=== PATIENT | female | born 1955 | race Caucasian/White ===

== ENCOUNTER 2020-05-21 14:55 | Outpatient (REF) | payer SELFPAY | END 2020-05-21 15:15 | LOC: NCHCN 14:55 | PROVIDERS: PCP Internal Medicine; Visit Provider Nurse Practitioner Family | DX: R35.0 Frequency of micturition (principal) | CPT/HCPCS: 87086 ==

== ENCOUNTER 2020-07-16 20:05 | Outpatient (REF) | payer SELFPAY ==
[2020-07-16 22:15] LABS: Abs Immature Grans 0.01 10^3/uL (0.0-0.06); Absolute Basophil Count 0.06 10^3/uL (0.0-0.2); Absolute Eosinophil Count 0.18 10^3/uL (0.0-0.7); Absolute Lymphocyte Count 1.28 10^3/uL (1.2-3.4); Absolute Monocyte Count 0.59 10^3/uL (0.1-0.8); Absolute Neutrophil Count 4.74 10^3/uL (1.2-6.7); Basophils % 0.9; Eosinophils % 2.6; HCT 38.2 % (36.0-46.0); HGB 12.6 g/dL (11.2-15.7); Immature Grans % 0.1; Lymphocytes % 18.7; MCH 29.2 pg (27.0-33.0); MCV 88.4 fL (80-95); MPV 11.2 fL (8.0-11.0); Monocytes % 8.6; Neutrophils % 69.1; Nucleated RBC 0 %; Platelet Count 326 10^3/uL (130-400); RBC 4.32 10^6/uL (3.93-5.22); RDW 13.1 % (11.7-14.6); RDW-SD 42.7 fL; WBC 6.86 10^3/uL (4.4-10.8)
[2020-07-16 22:22] LABS: ALT 22 U/L (14-59); AST 16 U/L (15-37); Albumin 4.1 g/dL (3.4-5.0); Alkaline Phosphatase 98 U/L (46-116); Anion Gap 9.6 mmol/L (3-11); BUN 16 mg/dL (7-18); Bilirubin, Total 0.4 mg/dL (0.2-1.0); CO2 21.4 mmol/L (21.0-32.0); CREATININE 1.07 mg/dL (0.55-1.02); Calcium 9.1 mg/dL (8.5-10.1); Chloride 109 mmol/L (98-107); Estimated GFR 51.63 (mL/min/1.73m2); Glucose 127 mg/dL (74-106); Sodium 140 mmol/L (136-145); TSH (W/Ref FT4) 2.39 uIU/mL (0.36-3.74); Total Protein 6.8 g/dL (6.4-8.2)
[2020-07-16 22:26] LABS: C-Reactive Protein < 0.05 mg/dL (0.0-0.3)
[2020-07-18 10:53] LABS: Lyme Ab w Rflx to Lyme Confirm Negative (Negative)
== END 2020-07-16 20:25 ==
LOC: NCHCN 20:05
PROVIDERS: PCP Internal Medicine; Visit Provider Family Medicine
DX: R41.0 Disorientation, unspecified (principal)
CPT/HCPCS: 80053; 84443; 85025; 86140; 86618

== ENCOUNTER 2020-07-31 13:39 | Outpatient (REF) | payer SELFPAY ==
[2020-08-01 21:38] LABS: COVID-19 RT-PCR UVMMC Result Negative (Negative)
== END 2020-07-31 13:59 ==
LOC: NCHCN 13:39
PROVIDERS: PCP Internal Medicine; Visit Provider Nurse Practitioner Family
DX: Z20.822 Contact with and (suspected) exposure to COVID-19 (principal)
CPT/HCPCS: U0003

== ENCOUNTER 2021-11-05 10:57 | Outpatient (REF) | payer MEDICAID, SELFPAY | END 2021-11-05 10:58 | disposition home or self-care (01) | LOC: NCHCN 10:57 | PROVIDERS: PCP Internal Medicine; Visit Provider Nurse Practitioner Family ==

== ENCOUNTER 2021-11-05 16:46 | Outpatient (REF) | payer MEDICAID, SELFPAY | END 2021-11-05 16:47 | disposition home or self-care (01) | LOC: NCHCN 16:46 | PROVIDERS: PCP Internal Medicine; Visit Provider Nurse Practitioner Family | DX: N39.0 Urinary tract infection, site not specified (principal) | CPT/HCPCS: 87086 ==

== ENCOUNTER 2021-11-10 04:09 | Outpatient (CLI) | payer MEDICAID, SELFPAY ==
--- NOTE | 2021-11-10 09:45 | DI.MAMMO_ITS ---
Exam(s) MG MAMMO SCREENING 60 MIN DUR EXAM: MG MAMMO SCREENING 60 MIN DUR CLINICAL HISTORY: SCREENING, Z12.39; IMPLANTS. TECHNIQUE: Bilateral full field digital CC and MLO mammographic images were obtained with 3D tomosyn thesis and utilizing computer aided detection (CAD). Both conventional and implant displacement views of both breasts were performed. COMPARISON: Prior outside mammograms from [place] have not yet been obtained and therefore this case is being dictated at this time. This patient had implant revision approximately 4 years ago. FINDINGS: There are bilateral retropectoral radiopaque silicon implants. Capsular calcification is seen anterior aspect of the left implant. There are no new spiculated masses nor malignant appearing microcalcification groups. There is no significant architectural distortion nor skin thickening-retraction. IMPRESSION: No radiographic evidence of malignancy. BI-RADS Category 2 - Benign Findings Breast Density - Category B - Scattered areas of fibroglandular density Breast density Category C or D implies that the patient has dense breast tissue. Dense breast tissue can make it harder to find cancer on a mammogram. Dense breast tissue is also associated with an incr eased risk of breast cancer. This information about the result of the mammogram report was provided to the patient to raise their awareness. Use this report when you speak with the patient about their risks for breast cancer, which includes their family history. At that time, you may recommend additional screening tests (Ultrasoun d or MRI) as these tests may add significant information. A negative radiographic report should not delay biopsy if a dominant or clinically suspicious mass is present. Up to ten percent of cancers are not identified on mammography. A negative report may reinforce clinical impression. Adenosis and dense breasts may obscure an underlying neoplasm. False positive reports average 6 to 10%. Patient will receive a letter notifying them of these results.
== END 2021-11-10 04:29 ==
PROVIDERS: PCP Internal Medicine; Visit Provider Nurse Practitioner Family
DX: Z12.31 Encounter for screening mammogram for malignant neoplasm of breast (principal); Z98.82 Breast implant status
CPT/HCPCS: 77063; 77067

== ENCOUNTER 2022-03-23 15:55 | Outpatient (REF) | payer MEDICAID, SELFPAY | END 2022-03-23 15:56 | disposition home or self-care (01) | LOC: NCHCN 15:55 | PROVIDERS: PCP Internal Medicine; Visit Provider Nurse Practitioner Family | DX: N39.0 Urinary tract infection, site not specified (principal) | CPT/HCPCS: 87086 ==

== ENCOUNTER 2022-04-12 09:59 | Day surgery (SDC) | payer MEDICAID, SELFPAY ==
--- NOTE | 2022-04-12 06:48 | COLE_ITS ---
Colonoscopy Report Date of procedure: 04/12/22 Pre-op diagnosis general: Hx of polyps, screening Post-op diagnosis procedure note: other (polyps, diverticulosis) Procedure: Colonoscopy with polypectomy Surgeon: Missy Jimenez Anesthesia Type: General:No Airway Estimated blood loss (mL): 3 Pathology: other (sigmoid polyp, diverticulosis) Complications: None Disposition: same day Indications: The patient? is a pleasant? 66 -year-old female who is here to discuss another screening colonoscopy. ? She denies any changes in bowel habits, melena, hematochezia, unintentional weight loss or family history of colon cancer.? The procedure and risks were discussed.? The prep was reviewed in detail.? Risks, benefits and complications have been reviewed. Complications include but are not limited to bleeding, pain, perforation, missed small lesion/polyp, sore throat, aspiration and adverse reaction to the medications. Questions were entertained and answered to their satisfaction and they wished to proceed. No guarantees were given or implied. Prep: Miralax/Dulcolax Procedure Start Time: 11:19 Procedure End Time: 11:49 Retraction Time: 18 minutes Findings: 1 larger sessile polyp 2 small rectal polyps ,mild diverticulosis Procedure Description: After informed consent was obtained the patient was taken to the procedure room and placed in a left decubitous position. Monitors were applied and a time out was done. The patients name, date of , procedure, allergies to me dications and metal in their body was reviewed. The patient was then sedated. Once sedated and comfortable a rectal exam was done. External exam was normal. Internal exam revealed a normal sphincter tone and no palpable masses. The scope was then introduced and retro-flexed. No internal hemorrhoids, polyps or masses were identified on retro-flexion. The scope was then advanced to the cecum without difficulty. The ileocecal vlave and appendiceal orifice were identified. The prep was marginal. The scope was then slowly retracted over 18 minutes back into the rectum. Polyps were removed with cold forceps in the sigmoid colon and in the rectum x2. There was mild sigmoid diverticulosis noted. The scope was removed and the patient was woken up and taken back to Same day surgery in stable condition. The patient tolerated the procedure well and there were no immediate complications.
--- NOTE | 2022-04-12 06:49 | W.PM.DSUDISC ---
Discharge Plan Disposition Patient Disposition: HOME Condition: Good Discharge Details Reason For Visit: Colonoscopy Attending Provider: Missy Jimenez Primary Care Provider: Delvin Hanks Home Meds and New Rx's Prescriptions: Continued ormus PO venlafaxine [Effexor XR] 37.5 mg capsule,extended release 24hr 37.5 mg PO DAILY hydromorphone 4 mg tablet 4 mg PO Q6H PRN biotin 2,500 MCG capsule 2,500 mcg PO DAILY Qty: 2 phenazopyridine [Pyridium] 200 mg tablet 200 mg PO TID abobotulinumtoxinA 300 unit recon soln See Rx Instructions .ROUTE .COMPLEX Rx Instructions: unspecified dose- injection once every 3 months for facial neuralgia meloxicam 7.5 mg tablet 7.5 - 15 mg PO DAILY PRN bupropion HCl [Wellbutrin SR] 200 mg tablet sustained-release 12 hr 200 mg PO BID alprazolam [Xanax] 0.5 mg tablet 0.5 mg PO DAILY zonisamide 100 mg capsule 500 mg PO HS Rx Instructions: Cipl brand only! Discontinued polyethylene glycol 3350 17 gram/dose powder 238 g PO ONCE Qty: 238 0RF Rx Instructions: take per colonoscopy instructions bisacodyl [Dulcolax (bisacodyl)] 5 mg tablet,delayed release (DR/EC) 5 mg PO ONCE Qty: 4 0RF Rx Instructions: take per colonoscopy instructions Discharge Instructions Instructions: Colorectal Polyps (DC), Diverticulosis (DC) Additional Instructions: Findings: polyps diverticulosis Follow up: 3-5 years Please call if you develop: fevers >101.5 Nausea or Vomiting Abdominal pain that is not transient Rectal bleeding that is more then a tbsp A hard abdomen and inability to pass gas DAY SURGERY UNIT POST ENDOSCOPY INSTRUCTIONS Instructions for everyone who is given Anesthesia: For your safety, please do the following for the next 24 Hours: a. Do not drive or operate dangerous equipment b. Do not drink alcohol beverages or use any recreational drugs for the first 24 hours or while taking pain medications. The medications in your body may have a reaction that can be dangerous. c. Do not make any important decisions or sign any important papers 1. Generally there are no restrictions on your activity after a day or so has gone by, but you may feel a bit fatigued for a few days. 2. After you arrive home you may have a light meal and return to a normal diet as you can tolerate it without feeling sick to your stomach. 3. After surgery, you may feel pain or discomfort. This should be only transient, but if it persists please contact your doctor. 4. If there are any questions regarding the findings of your procedure, please feel free to contact your doctor. 6. If you are unable to contact your doctor with a problem, contact the hospital at [phone]. 7. Continue all your regular medications unless directed otherwise. I understand the above instructions and have no questions. Signature of Patient or Responsible Adult Escort Date/Time Name of Responsible Adult Escort Signature of Nurse Date/Time Activity:: Activity as Tolerated Diet:: high fiber Discharge Orders Discharge Orders: Discharge Order (Routine); Ordered 04/12/22 Ordered By: Missy Jimenez
[2022-04-12 10:11] VITALS: BP 135/88; PULSE 81; RESP 18; TEMP 36.9; O2SAT 97
[2022-04-12] MEDS: Lactated Ringers 1,000 ML 80 ML IV (10:35)
--- NOTE | 2022-04-12 10:43 | W.ANESPRE ---
General Info Date of Service Date Performed: 04/12/22 Height: 5 ft 3 in Weight: 65.884 kg Body Mass Index (BMI): 25.7 Surgical Procedure: Operation Date: 04/12/22 12:05 Proposed Procedure Side Surgeon p Colonoscopy Missy Jimenez MD Meds Allergies and Home Medications Allergies Allergy/AdvReac Type Severity Reaction Status Date / Time oxycodone [From Percocet] Allergy Severe unknown Verified 04/09/22 13:14 ciprofloxacin [From Cipro] Allergy Intermediate Verified 04/09/22 13:14 prednisone AdvReac Unknown Unverified 04/09/22 13:14 Sulfa (Sulfonamide AdvReac Rash Unverified 04/09/22 13:14 Antibiotics) Home Medication Medication Instructions Recorded biotin 2,500 mcg capsule 2,500 mcg PO DAILY ##2 08/07/15 phenazopyridine 200 mg tablet 200 mg PO TID 07/02/21 (Pyridium) abobotulinumtoxinA 300 unit See Rx Instructions .Route .COMPLEX 11/20/21 intramuscular solution bupropion HCl 200 mg tablet,12 hr 200 mg PO BID 11/20/21 sustained-release (Wellbutrin SR) meloxicam 7.5 mg tablet 7.5 - 15 mg PO DAILY PRN 11/20/21 hydromorphone 4 mg tablet 4 mg PO Q6H PRN 03/17/22 venlafaxine 37.5 mg 37.5 mg PO DAILY 03/17/22 capsule,extended release 24 hr (Effexor XR) alprazolam 0.5 mg tablet (Xanax) 0.5 mg PO DAILY 04/02/22 bisacodyl 5 mg tablet,delayed 5 mg PO ONCE colonscopy bowel prep 04/02/22 release (Dulcolax (bisacodyl)) #4 tabs ormus PO 04/02/22 polyethylene glycol 3350 17 238 g PO ONCE colonoscopy prep 04/02/22 gram/dose oral powder #238 grams zonisamide 100 mg capsule 500 mg PO HS 04/09/22 Current Visit Medications: Current Medications Generic Name Dose Route Start Last Admin Trade Name Freq PRN Reason Stop Dose Admin Hyoscyamine Sulfate 0.125 mg 04/12/22 06:50 Hyoscyamine 0.125 Mg Sl/Oral/Chew SL DIRECTED PRN Ringer's Solution 1,000 mls @ 80 mls/hr 04/12/22 06:00 04/12/22 10:35 IV 05/09/22 23:59 80 mls/hr INFUSION LAURA Administration IV Miscellaneous Supplies 1 each 04/12/22 06:00 Iv Access IV 05/09/22 23:59 DIRECTED LAURA Ondansetron HCl 4 mg 04/12/22 06:50 Ondansetron 4 Mg/2 Ml Vial IVP Q4H PRN PRN Nausea / Vomiting Sodium Chloride 0 ml 04/12/22 06:00 Normal Saline Flush 10 Ml Syr IV 05/09/22 23:59 PRN PRN Sodium Chloride 0 ml 04/12/22 06:00 Normal Saline 10 Ml Vial IJ 05/09/22 23:59 DIRECTED PRN Sterile Water 0 ml 04/12/22 06:00 Water,Injection,Sterile 10 Ml Vial IJ 05/09/22 23:59 DIRECTED PRN PFSH Active Problems Active Problems: Problem Status Onset Code Screening for colon cancer Z12.11 Trigeminal neuralgia of left side of face G50.0 Genital warts A63.0 Medical History Medical History Anxiety Depression Gluten intolerance Lactose intolerance Neurologic abnormality Pt. stated she had what she was told something that mimicked a stroke, but wasn't one, lost some cognitive, but has regained most (75%) of the cognitive abilitiy, they put me in to the questionable MS category Sciatica Scoliosis Serrated adenoma of colon Surgical History Surgical History History of colonoscopy (~06/2008) 2010 S/P silicone breast implant Tobacco Smoking/Tobacco Use Status: Never Alcohol Alcohol Intake: never Substance Use Substance use: Occasionally Substance use type: marijuana Details: Pt states 2xwk, a couple of puffs Vital Signs and Lab Results Vital Signs Most Recent Vital Signs in EMR: Most Recent Vital Signs Temp Pulse Resp BP Pulse Ox 36.9 C 81 18 135/88 97 04/12/22 10:11 04/12/22 10:11 04/12/22 10:11 04/12/22 10:11 04/12/22 10:11 Lab Results Blood Type / Crossmatch: No Data to Display Complete Blood Count: No Data to Display Complete Metabolic Panel: No Data to Display Liver Function Panel: No Data to Display Coagulation Panel: No Data to Display Cardiac Panel: No Data to Display Arterial Blood Gas: No Data to Display Venous Blood Gas: No Data to Display Pancreas Panel: No Data to Display Thyroid Panel: No Data to Display Infectious Disease: No Data to Display Blood Cultures: No Data to Display Toxicology Panel: No Data to Display Anesthesia Assessment and Plan Anesthesia History Personal History: No History of Anesthesia Complications Family History: No Family History of Anesthesia Complications Exercise Tolerance Exercise Tolerance: Metabolic Equivalents>4 Pertinent Negatives Pertinent Negatives: No Symptoms of GERD, No Major Cardiovascular Symptoms or Complaints, No Major Pulmonary Symptoms or Complaints and No History of CVA/TIA Cardiac & Pulmonary Exam Cardiac Exam: Normal S1/S2 Heart Sounds Pulmonary Exam: Clear Bilateral Breath Sounds Implantable Cardiac Device Does patient have a Pacemaker or an ICD?: No Airway Exam Known Difficult Airway: No Mallampati Class: 2 Mouth Opening: Normal (> 3cm) Thyromental Distance: Greater than 3 cm Neck Range of Motion: Limited ROM (Pt states cervical stenosis) Neck Circumference: Normal Teeth Condition: Normal Dentition ASA Classification ASA Score: ASA 2 Emergency Case?: No NPO Status NPO Status: NPO Clears >2 hours, Solids >8 hours Anesthesia Plan Resuscitation Status: Full Code Anesthesia Technique: MAC Anesthesia Airway Planned: Natural Airway Monitors Used: Standard Monitors
[2022-04-12 11:12] VITALS: BMI 25.7
--- NOTE | 2022-04-12 11:21 | BOWEL_PTH ---
PATIENT: Naomi Conklin LOC: [facility] U#:[id number] AGE/SX: 66/F ROOM: RE04/12/[address]: Missy Jimenez MD : [id number] BED: DIS: 04/12/2022 SPEC #: [id number] RECD: 04/12/22 12:33 STATUS: GARETH REQ #: [id number] KATHARINE: 04/12/22 11:[address]: Missy Jimenez DEPT: Surgical Specimen RECD BY: Donna Pérez ENTERED: 04/12/22 12:34 SP TYPE: Bowel OTHR DR: Delvin Hanks Tissues: 1 - BIOPSY BOWEL 2 - BIOPSY BOWEL Procedures: GROSS AND MICRO LEVEL 4 Comments: [id number]
[2022-04-12 12:01] VITALS: BP 80/61; PULSE 75; RESP 16; TEMP 36.5; O2SAT 100
[2022-04-12 12:23] VITALS: BP 121/71; PULSE 70; RESP 18; TEMP 36.5; O2SAT 98
--- NOTE | 2022-04-12 12:26 | W.ANESPOSTOP ---
Postoperative Evaluation Date, Time and Location Date Performed: 04/12/22 Time Performed: 12:26 Patient Location: Day Surgery Unit Vital Signs Most Recent Imported Vital Signs: Most Recent Vital Signs Temp Pulse Resp BP Pulse Ox 36.5 C 70 18 121/71 98 04/12/22 12:23 04/12/22 12:23 04/12/22 12:23 04/12/22 12:23 04/12/22 12:23 Pain Score Most Recent Pain Score: Most Recent Pain Score Pain Level 0 04/12/22 12:23 Assessment Mental Status: Awake (Alert & Oriented to Patient Baseline) Airway and Respiratory Function: Patent airway with normal (patient baseline) respiratory exam Cardiovascular Function: Hemodynamically Stable Hydration Status: Adequately Hydrated Nausea & Vomiting: No Nausea or Vomiting Pain: Pt. Denies Any Pain Peripheral Nerve Block: Patient did not receive a nerve block
== END 2022-04-12 12:49 | disposition home or self-care (01) ==
LOC: SUR 10:00
PROVIDERS: PCP Internal Medicine; Visit Provider Surgery
PROC: 0DJD8ZZ Inspection of Lower Intestinal Tract, Via Natural or Artificial Opening Endoscopic (ICD-10-PCS; CPT 45378; principal; 2022-04-12 12:00)
DX: Z12.11 Encounter for screening for malignant neoplasm of colon (principal); K63.5 Polyp of colon; Z86.010 Personal history of colon polyps; K62.1 Rectal polyp; K57.30 Diverticulosis of large intestine without perforation or abscess without bleeding
CPT/HCPCS: 45380; 88305

== ENCOUNTER 2022-04-15 20:22 | Outpatient (REF) | payer MEDICAID, SELFPAY ==
[2022-04-15 18:27] LABS: Anion Gap 9.8 mmol/L (3-11); BUN 11 mg/dL (7-18); CO2 23.2 mmol/L (21.0-32.0); CREATININE 1.1 mg/dL (0.55-1.02); Chloride 104 mmol/L (98-107); Estimated GFR 55.76 (mL/min/1.73m2); Glucose 105 mg/dL (74-106); Potassium 4.1 mmol/L (3.5-5.1); Sodium 137 mmol/L (136-145)
== END 2022-04-15 20:23 | disposition home or self-care (01) ==
LOC: NCHCN 20:22
PROVIDERS: PCP Nurse Practitioner Family; Visit Provider Nurse Practitioner Family
DX: R39.9 Unspecified symptoms and signs involving the genitourinary system (principal); G50.0 Trigeminal neuralgia; R41.0 Disorientation, unspecified; F41.8 Other specified anxiety disorders; Z86.010 Personal history of colon polyps
CPT/HCPCS: 80048

== ENCOUNTER 2022-07-15 13:41 | Outpatient (REF) | payer MEDICAID, SELFPAY ==
[2022-07-15 15:23] LABS: Anion Gap 12.4 mmol/L (3-11); BUN 23 mg/dL (7-18); CO2 19.6 mmol/L (21.0-32.0); CREATININE 1.1 mg/dL (0.55-1.02); Calcium 8.9 mg/dL (8.5-10.1); Chloride 108 mmol/L (98-107); Estimated GFR 55.42 (mL/min/1.73m2); Glucose 113 mg/dL (74-106); Sodium 140 mmol/L (136-145); TSH (W/Ref FT4) 1.59 uIU/mL (0.36-3.74); Vitamin B12 462 pg/mL (193-986)
== END 2022-07-15 13:42 | disposition home or self-care (01) ==
LOC: NCHCN 13:41
PROVIDERS: PCP Nurse Practitioner Family; Visit Provider Nurse Practitioner Family
DX: N28.9 Disorder of kidney and ureter, unspecified (principal); R47.01 Aphasia; R41.3 Other amnesia; N39.0 Urinary tract infection, site not specified; G50.0 Trigeminal neuralgia; F41.8 Other specified anxiety disorders; M41.9 Scoliosis, unspecified
CPT/HCPCS: 80048; 82607; 84443

== ENCOUNTER 2023-01-25 17:40 | Outpatient (REF) | payer MEDICARE, MEDICAID, SELFPAY ==
[2023-01-25 20:56] LABS: HCT 36.8 % (36.0-46.0); HGB 12.3 g/dL (11.2-15.7); MCH 29.9 pg (27.0-33.0); MCHC 33.4 % (32.0-36.0); MCV 89 fL (80-95); MPV 11.4 fL (8.0-11.0); Platelet Count 315 10^3/uL (130-400); RBC 4.12 10^6/uL (3.93-5.22); RDW 12.6 % (11.7-14.6); RDW-SD 41.8 fL; WBC 7.25 10^3/uL (4.4-10.8)
[2023-01-25 22:59] LABS: ALT 23 U/L (14-59); AST 23 U/L (15-37); Albumin 4.1 g/dL (3.4-5.0); Alkaline Phosphatase 90 U/L (46-116); Anion Gap 12.2 mmol/L (3-11); BUN 18 mg/dL (7-18); Bilirubin, Total 0.6 mg/dL (0.2-1.0); CO2 21.8 mmol/L (21.0-32.0); CREATININE 1.2 mg/dL (0.55-1.02); Calcium 8.9 mg/dL (8.5-10.1); Chloride 107 mmol/L (98-107); Estimated GFR 49.92 (mL/min/1.73m2); Glucose 87 mg/dL (74-106); Potassium 4.5 mmol/L (3.5-5.1); Sodium 141 mmol/L (136-145); TSH 2.21 uIU/mL (0.36-3.74); Total Protein 6.6 g/dL (6.4-8.2)
== END 2023-01-25 17:41 | disposition home or self-care (01) ==
LOC: NCHCN 17:40
PROVIDERS: PCP Nurse Practitioner Family; Visit Provider Internal Medicine
DX: N63.0 Unspecified lump in unspecified breast (principal); R55 Syncope and collapse; G50.0 Trigeminal neuralgia
CPT/HCPCS: 80053; 85027; 84443

== ENCOUNTER 2023-02-01 01:04 | Outpatient (CLI) | payer MEDICARE, MEDICAID, SELFPAY ==
--- NOTE | 2023-02-01 08:45 | DI.MAMMO_ITS ---
Exam(s) MG MAMMO DIAGNOSTIC BI US BREAST LT LIMITED EXAM: MG MAMMO DIAGNOSTIC BI and limited left breast ultrasound CLINICAL HISTORY: Lt breast elongated 1 x 2 cm firm to rubbery mass 1 cm from areola. TECHNIQUE: Craniocaudal and mediolateral oblique Full Field Digital Mammography views of the bilater al breast with Computer Aided Diagnosis followed by Tomosynthesis and left breast ultrasound. COMPARISON: Comparison is made with prior examinations. FINDINGS: Mammography/Tomosynthesis: Masses/Architectural Distortion: The patient has bilateral breast implants. Dystrophic calcification s are again seen at about the 3 o'clock position of the left breast adjacent to the implant. No susp icious masses are seen. No areas of architectural distortion are present. Microcalcifictions: No suspicious pleomorphic-type are seen. Skin Thickening/Nipple Retraction: None. Limited left breast US: Echotexture: Normal appearance of the glandular tissue. Shadowing: Echogenic shadowing material is seen at the 3 o'clock position of the left breast correspo nding to the calcifications seen on the mammogram. Cyst: None. Solid lesions: None seen. Ductal dilation: None. IMPRESSION: 1. No evidence of malignancy is noted. 2. Unless there is more urgent need, follow-up screening mammography is recommended, as per [employer] guidelines. 3. The findings were discussed with the patient on the date of the examination. BI-RADS Category 2 - Benign Findings Breast Density - Category B - Scattered areas of fibroglandular density Breast density Category C or D implies that the patient has dense breast tissue. Dense breast tissue can make it harder to find cancer on a mammogram. Dense breast tissue is also associated with an incr eased risk of breast cancer. This information about the result of the mammogram report was provided to the patient to raise their awareness. Use this report when you speak with the patient about their risks for breast cancer, which includes their family history. At that time, you may recommend additional screening tests (Ultrasoun d or MRI) as these tests may add significant information. A negative radiographic report should not delay biopsy if a dominant or clinically suspicious mass is present. Up to ten percent of cancers are not identified on mammography. A negative report may reinforce clinical impression. Adenosis and dense breasts may obscure an underlying neoplasm. False positive reports average 6 to 10%. Patient will receive a letter notifying them of these results.
== END 2023-02-01 01:24 ==
PROVIDERS: PCP Nurse Practitioner Family; Visit Provider Internal Medicine
DX: Z12.31 Encounter for screening mammogram for malignant neoplasm of breast (principal); N63.25 Unspecified lump in the left breast, overlapping quadrants
CPT/HCPCS: 76642; 77062; 77066; G0279

== ENCOUNTER 2023-02-07 03:09 | Outpatient (CLI) | payer MEDICARE, MEDICAID, SELFPAY ==
--- NOTE | 2023-02-07 | DI.RAD_ITS ---
Exam(s) XR CERVICAL SP CRAIG TRAUMA 2-3V EXAM: XR CERVICAL SP CRAIG TRAUMA 2-3V CLINICAL HISTORY: CERVICALGIA M54.2. TECHNIQUE: 2D digital imaging was performed. Two images were obtained. Lateral flexion and extensi on views were obtained. COMPARISON: No exams were available for comparison FINDINGS: This is a limited examination. Degenerative changes are seen throughout the cervical spine characterized by disc space narrowing and osteophytes. No significant subluxation is seen with flexion or extension. The prevertebral soft t issues are unremarkable. IMPRESSION: Limited examination. Degenerative changes are seen in the cervical spine. DATA REPOSITORY: RADIATION DOSE DELIVERED:
--- NOTE | 2023-02-07 | DI.RAD_ITS ---
Exam(s) XR SCOLIOSIS T-L SPINE EXAM: XR SCOLIOSIS T-L SPINE CLINICAL HISTORY: Scoliosis evaluation. TECHNIQUE: 2D digital imaging was performed. COMPARISON: No exams were available for comparison FINDINGS: Scoliosis: There is 53 degrees left convex curvature of the thoracolumbar spine measured from T12 thr ough L5. There is 46 degrees right convex curvature of the thoracic spine measured from T3 through T 11. Vertebrae: No anomalies seen. No hypertrophy is identified. Degenerative changes are present through out the thoracolumbar spine. Remainder of the visualized osseous and soft tissue structures: No acute findings. IMPRESSION: Marked scoliotic curvature of the thoracolumbar spine as described above. DATA REPOSITORY: RADIATION DOSE DELIVERED:
== END 2023-02-07 03:29 ==
PROVIDERS: PCP Nurse Practitioner Family; Visit Provider Nurse Practitioner
DX: M50.30 Other cervical disc degeneration, unspecified cervical region (principal); M41.35 Thoracogenic scoliosis, thoracolumbar region
CPT/HCPCS: 72081; 72040

== ENCOUNTER 2023-03-03 09:20 | Outpatient (RCR) | payer MEDICARE, MEDICAID, SELFPAY ==
--- NOTE | 2023-03-03 09:30 | HOLTER_ITS ---
APPROVED REPORT Conclusion This is a 48-hour Holter monitor Predominant rhythm was sinus. Average heart rate was 86, minimum was 66, maximum 141 There were occasional atrial and ventricular ectopic beats There was no atrial fibrillation, no high-grade AV block, no pauses greater than 3 seconds There was one self-limited atrial run, 14 beats in duration
== END 2023-03-17 23:59 | disposition home or self-care (01) ==
LOC: CARDOPNVT 09:20
PROVIDERS: PCP Nurse Practitioner Family; Visit Provider Internal Medicine
DX: R55 Syncope and collapse (principal)
CPT/HCPCS: 93225; 93226

== ENCOUNTER → 2023-03-15 01:23 | Outpatient (CLI) | payer MEDICARE, MEDICAID, SELFPAY ==
--- NOTE | 2023-03-15 | DI.CT_ITS ---
Exam(s) CT THORAX CTA EXAM: CT THORAX CTA CLINICAL HISTORY: FAM HX RUPTURED THORACIC AORTIC ANEURYSM Z84.89. TECHNIQUE: Imaging Protocol: Axial CT angiography was performed with multi-slice acquisition and mu lti-planar and/or 3D reconstructions. CONTRAST MATERIAL: Intravenous: Omnipaque 350 contrast volume:100 mL COMPARISON: CR CHEST 2 VIEWS PA,LAT from 06/17/2011 FINDINGS: Tracheobronchial tree: Patent where visualized. Pulmonary parenchyma: No consolidation or dominant measurable mass. No architectural distortion. Pulmonary Arteries: No evidence of filling defect to suggest pulmonary emboli. Mediastinum and Alexandrea: No dominant adenopathy or fluid collection. The esophagus is unremarkable. Th ere is what appears to be a persistent left superior vena cava which is a normal variant. Visualized thyroid gland: Unremarkable. Pleura: No effusion or pneumothorax. Heart: The heart is not dilated. No coronary artery calcifications are seen. No pericardial effusion. Aorta: The ascending thoracic aorta measures 4.2 x 4.1 cm. Mild atherosclerosis is present. No evid ence of dissection. Upper abdomen: Unremarkable. Soft tissues: There are bilateral breast implants. Bones: Within normal limits for the patient's age.There is an S-type thoracolumbar scoliosis. IMPRESSION: 1. 4.2 x 4.1 cm ascending thoracic aortic aneurysm. No evidence of dissection. 2. No acute pulmonary process. 3. Persistent left sided superior vena cava which is a normal variant. RADIATION DOSE DELIVERED: 372.49mGy.cm Total DLP 372.49mGy.cm Total DLP DATA REPOSITORY: All CT scans at this facility are submitted to the National Radiology Data Registry (NRDR) Dose Index Registry (DIR) with the [employer] ([employer]). RADIATION OPTIMIZATION: All CT scans at this facility use at least one of these dose optimization te chniques: automated exposure control; mA and/or kV adjustment per patient size (includes targeted exa ms where dose is matched to clinical indication); or iterative reconstruction.
[2023-03-15 12:49] LABS: CREATININE 0.9 mg/dL (0.55-1.02); Estimated GFR 70.51 (mL/min/1.73m2)
[2023-03-15] MEDS: Omnipaque 350 MG/ML 500 ML BTL-Imaging package IJ (13:41)
[2023-03-15] MEDS: Normal Saline - Diluent 50 ML VIAL IJ (13:42)
== END ==
PROVIDERS: PCP Nurse Practitioner Family; Visit Provider Internal Medicine
DX: Z84.89 Family history of other specified conditions (principal); I71.21 Aneurysm of the ascending aorta, without rupture
CPT/HCPCS: 71275; 82565

== ENCOUNTER → 2023-05-16 12:17 | Outpatient (BNVA) | payer MEDICARE, SELFPAY | PROVIDERS: PCP Nurse Practitioner Family; Referring Provider Nurse Practitioner Family; Visit Provider Psychiatry & Neurology Neurology | DX: G50.0 Trigeminal neuralgia (principal); R41.3 Other amnesia; G25.0 Essential tremor | CPT/HCPCS: 99214 ==

== ENCOUNTER → 2023-05-26 11:09 | Outpatient (BNVA) | payer MEDICARE, SELFPAY | PROVIDERS: PCP Nurse Practitioner Family; Referring Provider Nurse Practitioner Family; Visit Provider Urology | DX: N30.10 Interstitial cystitis (chronic) without hematuria (principal); M62.89 Other specified disorders of muscle | CPT/HCPCS: 99213 ==

== ENCOUNTER 2023-05-27 18:17 | Outpatient (REF) | payer MEDICARE, SELFPAY ==
[2023-05-27 14:45] LABS: ALT 22 U/L (14-59); AST 17 U/L (15-37); Albumin 4.2 g/dL (3.4-5.0); Alkaline Phosphatase 88 U/L (46-116); Anion Gap 13.7 mmol/L (3-11); BUN 21 mg/dL (7-18); Bilirubin, Total 0.6 mg/dL (0.2-1.0); CO2 21.3 mmol/L (21.0-32.0); CREATININE 1.1 mg/dL (0.55-1.02); Calcium 9.5 mg/dL (8.5-10.1); Calculated LDL 74 mg/dL (<100); Chloride 105 mmol/L (98-107); Cholesterol 183 mg/dL (<200); Estimated GFR 55.42 (mL/min/1.73m2); Glucose 106 mg/dL (74-106); HDL Cholesterol 94 mg/dL (40-60); Potassium 4.2 mmol/L (3.5-5.1); Sodium 140 mmol/L (136-145); Total Protein 6.9 g/dL (6.4-8.2); Triglyceride 76 mg/dL (<150)
== END 2023-05-27 18:18 | disposition home or self-care (01) ==
LOC: NCHCN 18:17
PROVIDERS: PCP Nurse Practitioner Family; Visit Provider Nurse Practitioner Family
DX: I71.21 Aneurysm of the ascending aorta, without rupture (principal); F41.8 Other specified anxiety disorders
CPT/HCPCS: 80053; 80061

== ENCOUNTER → 2023-07-26 01:27 | Outpatient (CLI) | payer MEDICARE, SELFPAY ==
--- NOTE | 2023-07-26 | DI.US_ITS ---
APPROVED REPORT EXAM: Comprehensive 2D, Doppler, and color-flow Echocardiogram Patient Location: Out-Patient Polygraph Technician: Gabino Davis RDCS (AE) Indications: aneurysm of ascending aorta Conclusion 1. Left atrium mildly dilated,other chambers normal. 2. Normal LV systolic function,EF 60-65%. Grade 1 diastolic dysfunction. Normal RV fucntion. 3. Normal aortic root, mildly dilated ascending aorta at 3.6 cm. 4. Anatomically normal valves. Trace to mild MR/TR. 5. No pericardial effusionb. Wall motion Left Ventricle The left ventricle is normal size. The left ventricular systolic function is normal. The left ventric ular ejection fraction is within the normal range. There is normal left ventricular wall thickness. T here is normal LV segmental wall motion. There is no ventricular septal defect visualized. LVEF is 60 -65%. Right Ventricle The right ventricle is normal size. The right ventricular systolic function is normal. Atria The left atrium size is normal. The right atrium size is normal. The interatrial septum is intact wit h no evidence for an atrial septal defect. Aortic Valve The aortic valve is normal in structure. Aortic valve is trileaflet. There is no aortic valvular sten osis. No aortic regurgitation is present. Mitral Valve The mitral valve is normal in structure. No evidence of mitral valve stenosis. Trace to mild mitral r egurgitation. Tricuspid Valve The tricuspid valve is normal in structure. There is no tricuspid valve stenosis. Mild tricuspid regu rgitation. The RVSP is 25.1 mmHg. Pulmonic Valve The pulmonary valve is normal in structure. There is no pulmonic valvular stenosis. There is no pulmo kashif valvular regurgitation. Great Vessels The aortic root is normal in size. The ascending aorta is mildly dilated. Aortic arch is normal in ca liber. IVC is normal in size and collapses >50% with inspiration. Pericardium There is no pericardial effusion. 2D Dimensions IVSD d PLAX 0.80 cm F: 0.6-1.0 Ao Root d 2.97 cm F: 2.7 - 3.3 LVPW d PLAX 0.78 cm F: 0.6 - 1.0 Ao Asc Diam d 3.59 cm F: 2.3 - 3.1 LVID d PLAX 4.81 cm F: 3.8 - 5.2 LVDs 3.10 cm F: 2.2 - 3.5 LV EF Teichholz 64.9 % FS 35.53 % LV EDV (Teich) 108.3 mL LV ESV (Teich) 38.0 mL Stroke Vol Index (Teich) 45.31 M-Mode TAPSE 1.53 cm (M/F) >1.7 Auto EF LV EDV A4C 101.8 mL LV EDV A2C 61.6 mL LV EDV BP 82.0 mL LV ESV A4C 40.9 mL LV ESV A2C 24.7 mL LV ESV BP 30.7 mL LVEF(%) A4C 59.8 % LVEF(%) A2C 59.8 % LVEF(%) BP 62.6 % LV SV A4C 61.0 ml LV SV A2C 36.9 ml LV SV BP 51.4 ml LV CO A4C 4.4 L/min LV CO A2C 2.6 L/min LV CO BP 3.5 L/min HR A4C 71.72 BPM HR A2C 69.77 BPM LV EDV Index (BP) LA Volume LA Length A4C 4.3 cm LA Length A2C 4.2 cm LA Area A4C s 11.40 cm2 LA Area A2C s 9.85 cm2 LA Vol A4C A-L 25.87 mL LA Vol A2C A-L 19.57 mL LA Vol Biplane A-L 22.6 mL LA Vol/BSA A4C A-L LA Vol/BSA A2C A-L LA Vol/BSA BP A-L 14.6 mL/m2 LA Vol A4C MOD 25.0 mL LA Vol A2C MOD 19.5 mL LA Vol BP MOD 22.0 mL RA Volume RA Area A4C 9.2 cm2 RA ESV A4C (A-L) 18.7mL RA Vol/BSA A4C A-L RA Length A4C 3.8 cm RA ESV A4C (MOD) 18.3mL LV Diastology MV E' medial 0.058 (>0.07 m/s) MV E Vmax 0.48 (0.4-1.3 m/s) MV E/E' MED 8.35 (<14) MV A Vmax 0.85 (0.4-1.3 m/s) MV E' lateral 0.119 (>0.1 m/s) E/A Ratio 0.6 MV E/E' LAT 4.08 (<14) MV E' Average 0.088 m/s MV E/E'(average) 5.48 Aortic Valve AoV Vmax 1.34 m/s LVOT Vmax 0.97 m/s AoV Peak Grad 7.2 mmHg LVOT Peak Grad 3.7 mmHg AoV Area (Vmax) 1.80 cm2 LVOT VTI 0.213 m AoV VTI 0.282 m LVOT Mean Grad 1.6 mmHg AoV Mean Elijah. 0.96 m/s LVOT SV 53.18 mL AoV Mean Grad 4.2 mmHg LVOT Diam s 1.75 cm AoV Area (VTI) 1.88 cm2 Velocity Ratio 0.72 Mitral Valve MV DT 190 (160-240 msec) Pulmonary Valve PV Vmax 0.93 (0.5-1.5 m/s) RVOT Vmax 0.81 m/s PV Peak Grad 3.5 mmHg RVOT Peak Gr. 2.6 mmHg PV Mean Elijah 0.64 m/s RVOT VTI 0.138 m PV Mean Grad 1.9 mmHg RVOT Mean Gr. 1.5 mmHg Tricuspid Valve RA Pressure 3.00 mmHg TR Vmax 2.35 m/s TR Peak Grad 22.0 mmHg RVSP (TR) 25.1 mmHg
--- OUTSIDE RECORDS SUMMARY | 2023-07-26 01:29 | XMS_ITS | Continuity of Care Document ---
Author Name Unknown Organization [facility] Ambulatory Clinics Address [address] [place] [address] Encounter [facility] NBR [id number] Date(s): 02/06/23 - 02/06/23 [facility] Ambulatory Clinics [address] [place], [place] [address] Encounter Diagnosis Insect bite of back(Discharge Diagnosis) - 02/06/23 Discharge Disposition: Home or Self Care Attending Physician: Danielle Dunn APRN Allergies, Adverse Reactions, Alerts Substance Reaction Severity Status Percocet Severe Active Functional Status 02/06/23 Other exposure to Infectious Disease Non e Immunizations Given and Recorded Vaccine Date Status Refusal Reason SARS-CoV-2 mRNA (tozinameran 12y+) bival 1 05/05/22 Given 1Result Comment: patient tolerated well Medications buPROPion 200 mg/12 hours (SR) oral tablet, extended release 200 mg = 1 tab, Oral, BID, # 60 tab, 0 Refill(s) Start Date: 02/06/23 Status: Ordered cephalexin 500 mg oral capsule 500 mg = 1 cap, Oral, QID, # 28 cap, 0 Refill(s) Start Date: 02/06/23 Stop Date: 02/13/23 Status: Ordered estradiol 0.1 mg/g vaginal cream INSERT 1 GM VAGINALLY TWICE A WEEK Start Date: 02/06/23 Status: Ordered Myrbetriq 25 mg oral tablet, extended release 0 Refill(s) Start Date: 02/06/23 Status: Ordered venlafaxine 75 mg oral capsule, extended release 75 mg = 1 cap, Oral, Daily, # 30 cap, 0 Refill(s) Start Date: 02/06/23 Status: Ordered zonisamide 100 mg oral capsule 0 Refill(s) Start Date: 02/06/23 Status: Ordered Vital Signs Most recent to oldest [Reference Range]: 1 Temperature Tympanic [36.6-37.9 Deg C] 3 6.4 Deg C *LOW* (02/06/23 12:06 PM) Peripheral Pulse Rate [60-100 bpm] 90 bp m (02/06/23 12:06 PM) Blood Pressure [90-140/60-90 mmHg] 129/7 1mmHg (02/06/23 12:06 PM) Weight 52.16 kg (02/06/23 12:06 PM) Weight Measured (lbs) 114.993 lb (02/06/23 12:06 PM) Height 162.56 cm (02/06/23 12:06 PM) Height/Length Measured (inches) 64 inch (02/06/23 12:06 PM) BSA Measured 1.53 m2 (02/06/23 12:06 PM) Body Mass Index 19.74 kg/m2 (02/06/23 12:06 PM) Social History Social History Type Response Tobacco Never tobacco user T obacco Use:. Sex Hospital Discharge Instructions Patient Education 02/06/2023 11:20:15 Insect Bite, Adult Insect Bite, Adult An insect bite can make your skin red, itchy, and swollen. An insect bite is different from an insect sting, which happens when an insect injects poison (venom) into the skin. Some insects can spread disease to people through a bite. However, most insect bites do not lead todisease and are not serious. What are the causes? Insects may bite for a variety of reasons, including: ??? Hunger. ??? To defend themselves. Insects that bite include: ??? Spiders. ??? Mosquitoes. ??? Ticks. ??? Fleas. ??? Ants. ??? Flies. ??? Kissing bugs. ??? Chiggers. What are the signs or symptoms? Symptoms of this condition include: ??? Itching or pain in the bite area. ??? Redness and swelling in the bite area. ??? An open wound (skin ulcer). In many cases, symptoms last for 2???4 days. In rare cases, a person may have a severe allergic reaction (anaphylactic reaction) to a bite. Symptoms of an anaphylactic reaction may include: ??? Feeling banking center manager the face (flushed). This may include redness. ??? Itchy, red, swollen areas of skin (hives). ??? Swelling of the eyes, lips, face, mouth, tongue, or throat. ??? Difficulty breathing, speaking, or swallowing. ??? Noisy breathing (wheezing). ??? Dizziness or light-headedness. ??? Fainting. ??? Pain or cramping in the abdomen. ??? Vomiting. ??? Diarrhea. How is this diagnosed? This condition is usually diagnosed based on symptoms and a physical exam. How is this treated? Treatment is usually not needed. Symptoms often go away on their own. When treatment is recommended, it may involve: ??? Applying a cream or lotion to the bite area. This treatment helps with itching. ??? Taking an antibiotic medicine. This treatment is needed if the bite area gets infected. ??? Getting a tetanus shot, if you are not up to date on this vaccine. ??? Applying ice to the affected area. ??? Allergy medicines called antihistamines. This treatment may be needed if you develop itching yaya allergic reaction to the insect bite. ??? Giving yourself an epinephrine injection if you have an anaphylactic reaction to a bite. To give the injection, you will use what is commonly called an auto-injector pen (pre-filled automatic epinephrine injection device). Your health care provider will teach you how to use an auto-injector pen. Follow these instructions at home: Bite area care ??? Do not scratch the bite area. ??? Keep the bite area clean and dry. Wash it every day with soap and water as told by your health care provider. ??? Check the bite area every day for signs of infection. Check for: ??? Redness, swelling, or pain. ??? Fluid or blood. ??? Warmth. ??? Pus or a bad smell. Managing pain, itching, and swelling ??? You may apply cortisone cream, calamine lotion, or a paste made of baking soda and water to thebite area as told by your health care provider. ??? If directed, put ice on the bite area. ??? Put ice in a plastic bag. ??? Place a towel between your skin and the bag. ??? Leave the ice on for 20 minutes, 2???3 times a day. General instructions ??? Apply or take svjn-bga-wgbawkp and prescription medicines only as told by your health care provider. ??? If you were prescribed an antibiotic medicine, take or apply it as told by your health care provider. Do not stop using the antibiotic even if your condition improves. ??? Keep all follow-up visits as told by your health care provider. This is important. How is this prevented? To help reduce your risk of insect bites: ??? When you are outdoors, wear clothing that covers your arms and legs. This is especially important in the splunk consultant and evening. ??? Use insect repellent. The best insect repellents contain DEET, picaridin, oil of lemon eucalyptus (OLE), or [id number]. ??? Consider spraying your clothing with a pesticide called permethrin. Permethrin helps prevent insect bites. It works for several weeks and for up to 5???6 clothing washes. Do not apply permethrin directly to the skin. ??? If your home windows do not have screens, consider installing them. ??? If you will be sleeping in an area where there are mosquitoes, consider covering your sleeping area with a mosquito net. Contact a health care provider if: ??? You have redness, swelling, or pain in the bite area. ??? You have fluid or blood coming from the bite area. ??? The bite area feels warm to the touch. ??? You have pus or a bad smell coming from the bite area. ??? You have a fever. Get help right away if: ??? You have joint pain. ??? You have a rash. ??? You feel unusually tired or sleepy. ??? You have neck pain. ??? You have a headache. ??? You have unusual weakness. ??? You develop symptoms of an anaphylactic reaction. These may include: ??? Flushed skin. ??? Hives. ??? Swelling of the eyes, lips, face, mouth, tongue, or throat. ??? Difficulty breathing, speaking, or swallowing. ??? Wheezing. ??? Dizziness or light-headedness. ??? Fainting. ??? Pain or cramping in the abdomen. ??? Vomiting. ??? Diarrhea. These symptoms may represent a serious problem that is an emergency. Do not wait to see if the symptoms will go away. Do the following right away: ??? Use the auto-injector pen as you have been instructed. ??? Get medical help. Call your local emergency services (911 in the [place] Do not drive yourself to the hospital. Summary ??? An insect bite can make your skin red, itchy, and swollen. ??? Treatment is usually not needed. Symptoms often go away on their own. When treatment is recommended, it may involve taking medicine, applying medicine to the area, or applying ice. ??? Apply or take slhv-wam-yokqdmg and prescription medicines only as told by your health care provider. ??? Use insect repellent to help prevent insect bites. ??? Contact a health care provider if you have any signs of infection in the bite area. This information is not intended to replace advice given to you by your health care provider. Make sure you discuss any questions you have with your health care provider. Document Revised: 04/05/2022 Document Reviewed: 04/05/2022 [employer] Patient Education ?? 2022 [employer]. Physician Outpatient Note * Danielle Dunn APRN: PERFORM Event Display: Office Clinic Note Physician Authored Date: [id number] RUBEN PIERCE :1955 Age:67 years Sex:Female Visit Date:02/06/2023 Chief Complaint pt reports insect bite to back, swollen and pain History of Present Illness Patient is a 67-year-old female who presents today with a chief complaint of insect bite to the center of her back. ??She states that??she had??noted something to the center of her??back??few days ago, uncertain if she was bit by a spider or had a tick. ??She states that her noticed increased redness around the site??this morning. ??She states a history of brown recluse??spider bite and was concerned.?? She denies fever, chills, body aches. ??Denies any nausea or vomiting Review of Systems see hpi Physical Exam Vitals & Measurements T:??36.4?C ??(Tympanic)?? HR:??90??(Peripheral)?? BP:??129/71?? SpO2:??100%?? HT:??162.56??cm?? WT:??52.16??kg?? BMI:??19.74?? Pain Score:??4?? BSA:??1.53?? Noted insect??bite/sting to the center of the back with approximately 2 cm of surrounding erythema,?? no signs of necrosis or tissue sloughing. ??There is a centralized??area that appears to be a insertion nestor. Medical Decision Making: Patient was evaluated for an insect bite. ??Area??appears slightly irritated, it is reported to be itchy. ??That she use pnoa-hwc-sfzegor antihistamines??over the next 24 to 48 hours and see if she notes improvement. ??I did provide her a??course of antibiotic coverage if she continues to have increased and spreading redness. ??Was encouraged to follow-up with her primary care for lack of improvement or return for further evaluation and treatment if needed Assessment/Plan 1.??Insect bite of back??S20.419H Ordered: cephalexin 500 mg oral capsule, 500 mg = 1 cap, Oral, QID, # 28 cap, 0 Refill(s) ?? Patient Instructions I would recommend Tylenol ibuprofen for pain, you may try Benadryl 25 mg every 6-8 hours as needed for itching. ??Fill the prescription for antibiotics if you note??increased redness??over the next 24 to 48 hours ??for any worsening signs or symptoms of infection??and seek urgent and or emergent care for any worsening or concerning symptoms. Patient Education Insect Bite, Adult Problem List/Past Medical History Ongoing No qualifying data Historical No qualifying data Medications buPROPion 200 mg/12 hours (SR) oral tablet, extended release, 200 mg= 1 tab, Oral, BID cephalexin 500 mg oral capsule, 500 mg= 1 cap, Oral, QID estradiol 0.1 mg/g vaginal cream Myrbetriq 25 mg oral tablet, extended release venlafaxine 75 mg oral capsule, extended release, 75 mg= 1 cap, Oral, Daily zonisamide 100 mg oral capsule Allergies Percocet Social History Electronic Cigarette/Vaping Electronic Cigarette Use: Never. Tobacco Never tobacco user Tobacco Use:. Immunizations Vaccine Date Status SARS-CoV-2 mRNA (meera 12y+) bival 05/05/2022 Given Comments : patient tolerated well Electronically Signed on 02/06/23 02:21 PM Danielle Dunn APRN Outpatient Summary note * Danielle uDnn APRN: PERFORM Event Display: Ambulatory Patient Summary Authored Date: [id number] RUBEN PIERCE :1955 Age:67 years Sex:Female Visit Date:02/06/2023 Ambulatory Visit Instructions We would like to thank you for allowing us to assist you with your healthcare needs. The following includes patient education materials and information regarding your injury/illness. Your Next Steps Instructions From Your Care Team I would recommend Tylenol ibuprofen for pain, you may try Benadryl 25 mg every 6-8 hours as needed for itching. ??Fill the prescription for antibiotics if you note??increased redness??over the next 24 to 48 hours ??for any worsening signs or symptoms of infection??and seek urgent and or emergent care for any worsening or concerning symptoms. Medications What How Much When Why Instructions New cephalexin (cephalexin 500 mg oral capsule) 1 Capsules Oral (given by mouth) 4 times a day Insect bite of back Duration: 7 Days Printed Prescription Unchanged buPROPion (buPROPion 200 mg/ 12 hours (SR) oral tablet, extended release) 1 tab Oral (given by mouth) 2 times a day Unchanged estradiol topical (estradiol 0.1 mg/ g vaginal cream) INSERT 1 GM VAGINALLY TWICE A WEEK ?? Unchanged mirabegron (Myrbetriq 25 mg oral tablet, extended release) Unchanged venlafaxine (venlafaxine 75 mg oral capsule, extended release) 1 Capsules Oral (given by mouth) Every day Unchanged zonisamide (zonisamide 100 mg oral capsule) Your Summary Your Diagnosis Insect bite of back Your Care Team Attending Physician - Shaun STEAM SHOVELMAN, Cori L Discharge Vitals Temperature??(Tympanic) 97.5 ??F (36.4 ??C) Heart Rate??(Peripheral) 90 Blood Pressure?? 129/71?? Height?? 64.00 in (162.56 cm) Weight?? 115.01 lb (52.16 kg) BMI?? 19.74 Allergies Percocet Education Materials Insect Bite, Adult An insect bite can make your skin red, itchy, and swollen. An insect bite is different from an insect sting, which happens when an insect injects poison (venom) into the skin. Some insects can spread disease to people through a bite. However, most insect bites do not lead todisease and are not serious. What are the causes? Insects may bite for a variety of reasons, including: ? Hunger. ? To defend themselves. Insects that bite include: ? Spiders. ? Mosquitoes. ? Ticks. ? Fleas. ? Ants. ? Flies. ? Kissing bugs. ? Chiggers. What are the signs or symptoms? Symptoms of this condition include: ? Itching or pain in the bite area. ? Redness and swelling in the bite area. ? An open wound (skin ulcer). In many cases, symptoms last for 2???4 days. In rare cases, a person may have a severe allergic reaction (anaphylactic reaction) to a bite. Symptoms of an anaphylactic reaction may include: ? Feeling banking center manager the face (flushed). This may include redness. ? Itchy, red, swollen areas of skin (hives). ? Swelling of the eyes, lips, face, mouth, tongue, or throat. ? Difficulty breathing, speaking, or swallowing. ? Noisy breathing (wheezing). ? Dizziness or light-headedness. ? Fainting. ? Pain or cramping in the abdomen. ? Vomiting. ? Diarrhea. How is this diagnosed? This condition is usually diagnosed based on symptoms and a physical exam. How is this treated? Treatment is usually not needed. Symptoms often go away on their own. When treatment is recommended, it may involve: ? Applying a cream or lotion to the bite area. This treatment helps with itching. ? Taking an antibiotic medicine. This treatment is needed if the bite area gets infected. ? Getting a tetanus shot, if you are not up to date on this vaccine. ? Applying ice to the affected area. ? Allergy medicines called antihistamines. This treatment may be needed if you develop itching or an allergic reaction to the insect bite. ? Giving yourself an epinephrine injection if you have an anaphylactic reaction to a bite. To give the injection, you will use what is commonly called an auto- injector pen (pre-filled automatic epinephrine injection device). Your health care provider will teach you how to use an auto-injector pen. Follow these instructions at home: Bite area care ? Do not scratch the bite area. ? Keep the bite area clean and dry. Wash it every day with soap and water as told by your health careprovider. ? Check the bite area every day for signs of infection. Check for: ? Redness, swelling, or pain. ? Fluid or blood. ? Warmth. ? Pus or a bad smell. Managing pain, itching, and swelling ? You may apply cortisone cream, calamine lotion, or a paste made of baking soda and water to the bite area as told by your health care provider. ? If directed, put ice on the bite area. ? Put ice in a plastic bag. ? Place a towel between your skin and the bag. ? Leave the ice on for 20 minutes, 2???3 times a day. General instructions ? Apply or take kqxp-cgn-wleznzr and prescription medicines only as told by your health care provider. ? If you were prescribed an antibiotic medicine, take or apply it as told by your health care provider. Do not stop using the antibiotic even if your condition improves. ? Keep all follow-up visits as told by your health care provider. This is important. How is this prevented? To help reduce your risk of insect bites: ? When you are outdoors, wear clothing that covers your arms and legs. This is especially important in the splunk consultant and evening. ? Use insect repellent. The best insect repellents contain DEET, picaridin, oil of lemon eucalyptus (OLE), or [id number]. ? Consider spraying your clothing with a pesticide called permethrin. Permethrin helps prevent insectbites. It works for several weeks and for up to 5???6 clothing washes. Do not apply permethrin directly to the skin. ? If your home windows do not have screens, consider installing them. ? If you will be sleeping in an area where there are mosquitoes, consider covering your sleeping areawith a mosquito net. Contact a health care provider if: ? You have redness, swelling, or pain in the bite area. ? You have fluid or blood coming from the bite area. ? The bite area feels warm to the touch. ? You have pus or a bad smell coming from the bite area. ? You have a fever. Get help right away if: ? You have joint pain. ? You have a rash. ? You feel unusually tired or sleepy. ? You have neck pain. ? You have a headache. ? You have unusual weakness. ? You develop symptoms of an anaphylactic reaction. These may include: ? Flushed skin. ? Hives. ? Swelling of the eyes, lips, face, mouth, tongue, or throat. ? Difficulty breathing, speaking, or swallowing. ? Wheezing. ? Dizziness or light-headedness. ? Fainting. ? Pain or cramping in the abdomen. ? Vomiting. ? Diarrhea. These symptoms may represent a serious problem that is an emergency. Do not wait to see if the symptoms will go away. Do the following right away: ? Use the auto-injector pen as you have been instructed. ? Get medical help. Call your local emergency services (911 in the [place] Do not drive yourself to the hospital. Summary ? An insect bite can make your skin red, itchy, and swollen. ? Treatment is usually not needed. Symptoms often go away on their own. When treatment is recommended, it may involve taking medicine, applying medicine to the area, or applying ice. ? Apply or take cvoa-peh-hsiovej and prescription medicines only as told by your health care provider. ? Use insect repellent to help prevent insect bites. ? Contact a health care provider if you have any signs of infection in the bite area. This information is not intended to replace advice given to you by your health care provider. Make sure you discuss any questions you have with your health care provider. Document Revised: 04/05/2022 Document Reviewed: 04/05/2022 [employer] Patient Education ?? 2022 [employer] Electronically Signed on: 02/06/2023 12:21 EDTSigned by:CANDIDO
--- OUTSIDE RECORDS SUMMARY | 2023-07-26 01:29 | XMS_ITS | Continuity of Care Document ---
Author Name Unknown Organization [facility] Ambulatory Clinics Address [address] [place] [address] Encounter [facility] NBR [id number] Date(s): 05/05/22 - 05/05/22 [facility] Ambulatory Clinics [address] [place] [address]- Discharge Disposition: Home or Self Care Assessment and Plan Future Appointments Appointment Date:05/05/2022 01:00:00 PM Scheduled Provider: Location:[facility] Appointment Type:COVID-BSTR
== END ==
PROVIDERS: PCP Nurse Practitioner Family; Visit Provider Nurse Practitioner Family
DX: I71.21 Aneurysm of the ascending aorta, without rupture (principal)
CPT/HCPCS: 93306

== ENCOUNTER 2023-12-11 06:07 | Emergency (ER) | payer MEDICARE, SELFPAY ==
[2023-12-11 06:09] VITALS: BP 148/71; PULSE 77; RESP 16; TEMP 37.2; O2SAT 97
--- NOTE | 2023-12-11 06:30 | DI.RAD_ITS ---
Exam(s) XR CHEST 2V PA LATERAL EXAM: XR CHEST 2V PA LATERAL CLINICAL HISTORY: cough, subjective fever TECHNIQUE: 2D digital imaging was performed. Two views. COMPARISON: CT CT THORAX CTA from 03/15/2023 FINDINGS: HEART: Normal size. Aorta: Not dilated. PULMONARY VASCULATURE: Normal. LUNGS: Clear. PLEURAL SPACE: No pleural effusion or pneumothorax. BONE:Severe scoliosis. Soft tissues: Unremarkable. IMPRESSION: No acute abnormality. DATA REPOSITORY: RADIATION DOSE DELIVERED:
[2023-12-11] MEDS: Dexamethasone 4 MG TAB PO (06:42)
[2023-12-11] MEDS: Ibuprofen 600 MG TAB PO (06:42)
--- NOTE | 2023-12-11 06:50 | ED.GENADUL_ITS ---
Discharge Plan Disposition Patient Disposition: Home Condition: Good Discharge Details Clinical Impression: Acute sore throat Primary Care Provider: Gail Donald ED Provider: Abbey Aparicio Home Meds and New Rx's Prescriptions: Continued metoprolol succinate 25 mg tablet extended release 24 hr 25 mg PO DAILY meloxicam 7.5 mg tablet 7.5 - 15 mg PO DAILY PRN bupropion HCl [Wellbutrin SR] 200 mg tablet sustained-release 12 hr 200 mg PO BID zonisamide 100 mg capsule 400 mg PO HS Qty: 480 3RF Rx Instructions: Cipl brand only! mirabegron [Myrbetriq] 25 mg tablet extended release 24 hr 25 mg PO DAILY Qty: 180 2RF Rx Instructions: patient [place] of country - please fill for 6 month period of time if possible Discharge Instructions Instructions: Pharyngitis (ED) Additional Instructions: Tylenol over the counter for pain; follow the directions on the bottle. Call your primary care doctor today to schedule an appointment for within one week to followup on your visit here. Return to the emergency department for new or worsening symptoms including inability to swallow, difficulty breathing, or if you have any other concerns. Referrals: Gail Donald [Primary Care Provider] - [facility] General Mode of arrival: ambulatory . Date/Time Provider Initiated Documentation: 12/11/23 06:16 . Limitations to Documentation: no limitations . Information obtained by: patient . HPI Narrative: 68yo F presenting with sore throat x 5 days. Tmax 99.9F at home, Has also had cough, muscle aches, and mild shortness of breath worse with coughing. Mild left ear pain as well. No difficulty swallowing, though it is painful. Able to manage secretions. Family with similar symptoms. Reports known 4.5cm abdominal aortic aneurysm which is followed by [facility]; concerned that coughing may make this worse. No chest pain, back pain, lightheadedness, numbness, tingling, or weakness. Otherwise in her usual state of health with no nausea, vomiting, abdominal pain, dysuria, hematuria, or other concerns. Related Data Home Medications Medication Instructions Recorded Confirmed bupropion HCl 200 mg tablet,12 hr 200 mg PO BID 11/20/21 12/11/23 sustained-release (Wellbutrin SR) meloxicam 7.5 mg tablet 7.5 - 15 mg PO DAILY PRN 05/06/22 05/26/24 metoprolol succinate 25 mg 25 mg PO DAILY 05/16/23 12/11/23 tablet,extended release 24 hr mirabegron 25 mg tablet,extended 25 mg PO DAILY #180 tabs 07/25/23 12/11/23 release 24 hr (Myrbetriq) zonisamide 100 mg capsule 400 mg (4 x 100 mg) PO HS #480 caps 07/25/23 12/11/23 Previous Rx's Medication Instructions Recorded mirabegron 25 mg tablet,extended 25 mg PO DAILY #180 tabs 07/25/23 release 24 hr (Myrbetriq) zonisamide 100 mg capsule 400 mg (4 x 100 mg) PO HS #480 caps 07/25/23 Allergies Allergy/AdvReac Type Severity Reaction Status Date / Time oxycodone [From Percocet] Allergy Severe unknown Verified 12/11/23 06:13 ciprofloxacin [From Cipro] Allergy Intermediate Unknown Verified 12/11/23 06:13 prednisone AdvReac Unknown Unknown Verified 12/11/23 06:13 Sulfa (Sulfonamide AdvReac Rash Verified 12/11/23 06:13 Antibiotics) General Stated Complaint: Sorethroat MARIBELL: 3 Review of Systems Narrative: see HPI Exam Narrative Exam Narrative: General: Alert, well appearing, well nourished, in no acute distress. Head: Normocephalic, atraumatic Neck: Trachea midline, ?Neck supple.? No cervical lymphadenopathy ENT: ?MMM.? No oropharygeal lesions or exudate.? TM's clear. Cardiac: ?RRR, no murmurs appreciated Resp: No respiratory distress. CTAB. Abd: ?Soft, non-distended, nontender : ?No suprapubic tenderness. Extremities: ?No deformities.? No peripheral edema. Neurologic: GCS 15. ? Moves all extremities freely against gravity Course Vital Signs Vital signs: Vital Signs Temperature 37.2 C 12/11/23 06:09 Pulse 77 12/11/23 06:09 Respiratory Rate 16 12/11/23 06:09 Blood Pressure 148/71 H 12/11/23 06:09 Pulse Oximetry 97 12/11/23 06:09 Temperature 37.2 C 12/11/23 06:09 Pulse 77 12/11/23 06:09 Respiratory Rate 16 05/26/24 06:09 Respiratory Effort Normal 12/11/23 06:14 Blood Pressure 148/71 H 12/11/23 06:09 Pulse Oximetry 97 12/11/23 06:09 Oxygen Delivery Method Room Air 12/11/23 06:09 Oxygen Flow Rate 0 12/11/23 06:09 Pain Level 5 12/11/23 06:09 Lab/Test Results Lab/Test Results: 12/11/23 06:12 Tonsil - Not Specified Group A Streptococcus Culture - Pending POC Strep Test-WILY(Rapid) Start: 12/11/23 06:15 Freq: .Rapid Strep Test Status: Active Protocol: Document 12/11/23 06:29 NANCI (Rec: 12/11/23 06:29 NANCI [id number]) Strep test-WILY(Rapid)-POC POC-Strep test-WILY (Rapid) Negative POC-Strep test-WILY (Rapid) Negative Medical Decision Making 68yo F presenting with sore throat x 5 days with associated cough, body aches, and left ear pain. Slightly hypertensive on arrival, vital signs and physical exam otherwise reassuring. Afebrile. Not septic; would not get labs. Not concerned for deep space neck infection/ellyn's/peritonsillar abscess/etc; no indication for CT imaging. No pain or vital sign abnormalities to suggest aortic pathology, would not get emergent CT at this time. Strep swab from triage negative, sent for culture. Respiratory viral swab . CXR independently reviewed, no focal pneumonia on my view (does have marked scoliosis), agree with radiology read below. Given ibuprofen and decadron for symptoms, advised symptomatic treatment at home and PCP followup. Discharged home; discharge instructions and return precautions were reviewed with patient who verbalized understanding. All questions were answered and she is in full agreement with the plan. Imaging Data Radiologic Study: Imaging: X-Ray Radiologist's impression: IMPRESSION: No acute intrathoracic findings. Quality:SDOH Health Related Social Needs: No Data to Display PFSH All Active Problems (Updated 12/11/23 @ 06:59 by Abbey Aparicio MD) Acute sore throat (Acute) Essential tremor (Acute) Memory loss (Acute) Pelvic floor dysfunction (Acute) Neck pain (Acute) Interstitial cystitis (Acute) Screening for colon cancer (Acute) Trigeminal neuralgia of left side of face (Acute) Genital warts (Acute) Medical History (Updated 12/11/23 @ 06:59 by Abbey Aparicio MD) AAA (abdominal aortic aneurysm) Neurologic abnormality Pt. stated she had what she was told something that mimicked a stroke, but wasn't one, lost some cognitive, but has regained most (75%) of the cognitive abilitiy, they put me in to the questionable MS category Anxiety Sciatica Scoliosis Depression Lactose intolerance Gluten intolerance Serrated adenoma of colon Surgical History S/P silicone breast implant History of colonoscopy (~06/2008) 2021 2009 Family History Mother Diabetes Hypertension Social History Smoking/Tobacco Use Status: Never Smoking risk assessment performed?: Yes Alcohol Intake: never Drug use: Occasionally Substance use type: marijuana Details: Pt states 2xwk, a couple of puffs Number of Children: 4 current occupation: Artist What is your relationship status?: Panel score (0-1 are the most socially isolated patients): 1 Do you feel safe at home: Yes Do you feel safe in your relationship?: Yes
[2023-12-11 07:00] LABS: COVID-19 PCR Negative (Negative); Influenza A PCR Negative (Negative); Influenza B PCR Negative (Negative); RSV PCR Negative (Negative)
[2023-12-11 07:01] LABS: Source Nasopharynx
--- NOTE | 2023-12-11 07:15 | DI.VRAD_ITS ---
PROCEDURE INFORMATION: Exam: XR Chest Exam date and time: 12/11/2023 6:54 AM Age: 68 years old Clinical indication: Fever TECHNIQUE: Imaging protocol: Radiologic exam of the chest. Views: 2 views. COMPARISON: CT THORAX CTA 03/15/2023 1:33 PM FINDINGS: Lungs: No consolidation. Pleural spaces: No sizable pleural effusion or pneumothorax. Heart/Mediastinum: No cardiomegaly. Bones/joints: S shaped scoliosis of the thoracic spine. IMPRESSION: No acute intrathoracic findings. Dictated and Authenticated by: Radha Diaz MD. Ordering:ANN MARIE Potter MD
[2023-12-11 07:24] VITALS: BP 129/64; PULSE 80; RESP 16; O2SAT 96
== END 2023-12-11 07:24 | disposition home or self-care (01) ==
PROVIDERS: Emergency Provider Student in an Organized Health Care Education/Training Program; PCP Nurse Practitioner Family
DX: J02.9 Acute pharyngitis, unspecified (principal); R50.9 Fever, unspecified; R06.02 Shortness of breath; R05.1 Acute cough
CPT/HCPCS: 87637; 87880; 99283; 71046; 87081; J8540

== ENCOUNTER 2023-12-26 16:22 | Outpatient (REF) | payer MEDICARE, SELFPAY ==
[2023-12-26 21:34] LABS: Anion Gap 12.3 mmol/L (3-11); BUN 16 mg/dL (7-18); CO2 22.7 mmol/L (21.0-32.0); CREATININE 1.1 mg/dL (0.55-1.02); Calcium 9.3 mg/dL (8.5-10.1); Chloride 105 mmol/L (98-107); Estimated GFR 55.07 (mL/min/1.73m2); Glucose 102 mg/dL (74-106); Potassium 4.5 mmol/L (3.5-5.1); Sodium 140 mmol/L (136-145)
[2023-12-26 21:42] LABS: Microalb ug/mg Crea 18.7 ug/mg Cr
[2023-12-26 21:51] LABS: Bilirubin Negative (Negative); Blood Negative (Negative); Clarity Cloudy (Clear); Glucose Negative (Negative); Ketones Negative (Negative); Leukocyte Esterase Trace (Negative); Nitrite Positive (Negative); Urobilinogen 0.2 mg/dL (Up to 0.2)
[2023-12-26 22:13] LABS: Bacteria Many HPF (Negative); C & S Indicated? Yes; Casts Negative LPF (Negative); Crystals Mod Calcium Oxalate HPF (Negative); Epithelial Cells Rare HPF (Negative); Mucus Negative (Negative); RBC 0-2 HPF (0-2)
== END 2023-12-26 16:23 | disposition home or self-care (01) ==
LOC: NCHCN 16:22
PROVIDERS: PCP Nurse Practitioner Family; Visit Provider Nurse Practitioner Family
DX: N28.9 Disorder of kidney and ureter, unspecified (principal); R82.998 Other abnormal findings in urine
CPT/HCPCS: 80048; 87077; 81003; 81015; 82043; 82570; 87086; 87186

== ENCOUNTER 2024-01-12 15:59 | Outpatient (CLI) | payer MEDICARE, SELFPAY ==
[2024-01-12 12:05] LABS: Abs Immature Grans 0.01 10^3/uL (0.0-0.06); Absolute Basophil Count 0.07 10^3/uL (0.0-0.2); Absolute Eosinophil Count 0.19 10^3/uL (0.0-0.7); Absolute Lymphocyte Count 1.45 10^3/uL (1.2-3.4); Absolute Monocyte Count 0.39 10^3/uL (0.1-0.8); Absolute Neutrophil Count 3.33 10^3/uL (1.2-6.7); Basophils % 1.3 %; Eosinophils % 3.5 %; HCT 41.1 % (36.0-46.0); HGB 13.2 g/dL (11.2-15.7); Immature Grans % 0.2 %; Lymphocytes % 26.7 %; MCH 28.9 pg (27.0-33.0); MCHC 32.1 % (32.0-36.0); MCV 90 fL (80-95); Monocytes % 7.2 %; Neutrophils % 61.1 %; Platelet Count 309 10^3/uL (130-400); RBC 4.57 10^6/uL (3.93-5.22); RDW 13.3 % (11.7-14.6); RDW-SD 43.6 fL; WBC 5.44 10^3/uL (4.4-10.8)
[2024-01-12 12:38] LABS: D-Dimer 1062 ng/mlFEU (<500)
[2024-01-12 12:58] LABS: ALT 19 U/L (14-59); AST 18 U/L (15-37); Albumin 4.1 g/dL (3.4-5.0); Alkaline Phosphatase 98 U/L (46-116); Anion Gap 8.4 mmol/L (3-11); BUN 22 mg/dL (7-18); Bilirubin, Total 0.81 mg/dL (0.2-1.0); CO2 27.6 mmol/L (21.0-32.0); CREATININE 1.3 mg/dL (0.55-1.02); Calcium 9.4 mg/dL (8.5-10.1); Chloride 106 mmol/L (98-107); Estimated GFR 45.07 (mL/min/1.73m2); Ferritin 159 ng/mL (8-252); Glucose 105 mg/dL (74-106); Potassium 3.8 mmol/L (3.5-5.1); Sodium 142 mmol/L (136-145); Total Protein 7.6 g/dL (6.4-8.2)
[2024-01-12 13:10] LABS: Iron 106 ug/dL (50-170); Total Iron Binding Capacity 267 ug/dL (250-450); Transferrin Sat 40 % (15-50)
== END 2024-01-12 16:00 | disposition home or self-care (01) ==
LOC: LBO 16:03
PROVIDERS: PCP Nurse Practitioner Family; Visit Provider Nurse Practitioner Family
DX: R06.00 Dyspnea, unspecified (principal); R53.83 Other fatigue
CPT/HCPCS: 36415; 80053; 82728; 83540; 83550; 85025; 85379

== ENCOUNTER 2024-04-19 01:17 | Outpatient (CLI) | payer MEDICARE, SELFPAY ==
--- NOTE | 2024-04-19 | DI.DEXA_ITS ---
Exam(s) XR DEXA BONE DENSITY W/WO NAVID EXAM: XR DEXA BONE DENSITY W/WO NAVID CLINICAL HISTORY: Asymptomatic menopausal state, Z78.0 TECHNIQUE: COMPARISON: Comparison examination is dated 12/22/2006. FINDINGS: Lateral Spine Image: The lateral image is suboptimal due to patient positioning and scoliosis. Left hip: Total T-Score: -0.9. This compares to 1.9 on the prior examination. Total Z-Score: 0.5 T- and Z-scores: There is no evidence of osteoporosis. Note is made of osteopenia in the femoral nec k with a T-score -1.1. Left forearm: Total T-Score: -0.4 Total Z-Score: 1.4 T- and Z-scores: Within normal limits. IMPRESSION: No evidence of osteoporosis.
--- NOTE | 2024-04-19 11:26 | DI.MAMMO_ITS ---
Exam(s) MG MAMMO SCREENING 60 MIN DUR EXAM: MG MAMMO SCREENING 60 MIN DUR CLINICAL HISTORY: Screening, Z12.31 TECHNIQUE: Mammograms were interpreted according to the usual protocol including computer analysis w Linqia CAD system, tomosynthesis and C-view imaging. Implant displaced views were performed in addition to the routine views. COMPARISON: 2021 and 2022 FINDINGS: The breasts are composed of mainly fatty density , Breast Density category A. No suspicious masses or suspicious microcalcifications are seen. Bilateral breast implants appear in tact. Dystrophic calcification again noted anterior to the left implant. No skin thickening or abnormal axillary lymph nodes are seen. There has been no significant change from prior exams. IMPRESSION: BI-RADS Category 2 - Benign Findings Yearly screening mammography is recommended. Breast Density - Category A, fatty density. A negative radiographic report should not delay biopsy if a dominant or clinically suspicious mass is present. Up to ten percent of cancers are not identified on mammography. A negative report may reinforce clinical impression. Adenosis and dense breasts may obscure an underlying neoplasm. False positive reports average 6 to 10%. Patient will receive a letter notifying them of these results.
== END 2024-04-19 01:37 ==
LOC: DI 01:17
PROVIDERS: PCP Nurse Practitioner Family; Visit Provider Nurse Practitioner Family
DX: Z78.0 Asymptomatic menopausal state (principal); Z12.31 Encounter for screening mammogram for malignant neoplasm of breast; Z13.820 Encounter for screening for osteoporosis
CPT/HCPCS: 77063; 77067; 77080

== ENCOUNTER 2024-05-04 00:29 | Outpatient (CLI) | payer MEDICARE, SELFPAY ==
--- NOTE | 2024-05-04 | DI.US_ITS ---
Exam(s) US ABDOMEN EXAM: US ABDOMEN CLINICAL HISTORY: LUQ PAIN,R10.12 TECHNIQUE: Ultrasound abdomen performed using standard protocol. COMPARISON: CT CT THORAX CTA from 03/15/2023 FINDINGS: ABDOMINAL AORTA AND IVC: Visualized portions normal caliber. PANCREAS: Normal where visualized. LIVER: Normal. Hepatopetal flow in the Portal Vein. The liver measures 10.3 cm long. GALLBLADDER:No evidence of cholelithiasis. No evidence of wall thickening. No pericholecystic fluid i dentified. BILIARY SYSTEM: Common bile duct measures < 7 mm. No intrahepatic biliary ductal dilation. HUITRON'S SIGN: Negative. KIDNEYS: Kidneys are symmetric in size. No evidence of renal calculi. No evidence of hydronephrosis. No renal mass or cyst identified. SPLEEN: Not enlarged. ASCITES: None seen. The left lower quadrant was evaluated in the area of pain as identified by the patient. Portions of t he area are obscured by overlying bowel. This areas unremarkable sonographically. IMPRESSION: Normal sonographic appearance of the upper abdomen. DATA REPOSITORY:
== END 2024-05-04 00:49 ==
LOC: DI 00:29
PROVIDERS: PCP Nurse Practitioner Family; Visit Provider Nurse Practitioner Family
DX: R10.12 Left upper quadrant pain (principal)
CPT/HCPCS: 76700

== ENCOUNTER → 2024-05-14 12:42 | Outpatient (BNVA) | payer MEDICARE, SELFPAY | PROVIDERS: PCP Nurse Practitioner Family; Referring Provider Nurse Practitioner Family; Visit Provider Psychiatry & Neurology Neurology | DX: G50.0 Trigeminal neuralgia (principal); R41.3 Other amnesia; G25.0 Essential tremor | CPT/HCPCS: 99215 ==

== ENCOUNTER 2024-06-01 02:08 | Outpatient (CLI) | payer MEDICARE, SELFPAY ==
[2024-06-01] MEDS: Inhaler, Assist Device 1 EACH MC (14:09)
[2024-06-01] MEDS: Levalbuterol HFA 15 GM INH 4 PUFF IH (14:10)
--- NOTE | 2024-06-06 10:14 | W.PFT ---
Date of service: 06/01/24 Time of Service: 12:47 Pulmonary Function Test Result Indications: Dyspnea on exertion Interpretation Spirometry: There is no airflow limitation. No bronchodiulator response. Lung Volumes: Normal lung volumes Diffusion Capacity: Normal corrected diffusion Airway Pressure: Normal airways resistance Impression Normal pulmonary function testing Clinical Correlation therefore is recommended.
== END 2024-06-01 02:09 | disposition home or self-care (01) ==
LOC: RT 02:09
PROVIDERS: PCP Nurse Practitioner Family; Visit Provider Student in an Organized Health Care Education/Training Program
DX: R06.00 Dyspnea, unspecified (principal)
CPT/HCPCS: 94060; 94726; 94729

== ENCOUNTER 2024-06-21 08:21 | Outpatient (CLI) | payer MEDICARE, SELFPAY | END 2024-06-21 08:22 | disposition home or self-care (01) | LOC: DI.CARD 08:23 | PROVIDERS: PCP Nurse Practitioner Family; Visit Provider Internal Medicine Cardiovascular Disease | DX: I71.40 Abdominal aortic aneurysm, without rupture, unspecified; I51.89 Other ill-defined heart diseases | CPT/HCPCS: 93010 ==

== ENCOUNTER 2024-06-28 15:04 | Outpatient (REF) | payer MEDICARE, SELFPAY ==
[2024-06-28 15:59] LABS: Anion Gap 10.6 mmol/L (3-11); BUN 16 mg/dL (7-18); CO2 22.4 mmol/L (21.0-32.0); CREATININE 1.2 mg/dL (0.55-1.02); Calcium 8.9 mg/dL (8.5-10.1); Chloride 109 mmol/L (98-107); Estimated GFR 49.31 (mL/min/1.73m2); Glucose 89 mg/dL (74-106); Potassium 4.2 mmol/L (3.5-5.1); Sodium 142 mmol/L (136-145); Vitamin D 25 Total 46.1 ng/mL (30-100)
== END 2024-06-28 15:05 | disposition home or self-care (01) ==
LOC: NCHCN 15:04
PROVIDERS: PCP Nurse Practitioner Family; Visit Provider Nurse Practitioner Family
DX: M85.89 Other specified disorders of bone density and structure, multiple sites (principal); N28.9 Disorder of kidney and ureter, unspecified
CPT/HCPCS: 80048; 82306

== ENCOUNTER → 2024-07-05 10:11 | Outpatient (BNVA) | payer MEDICARE, SELFPAY | PROVIDERS: PCP Nurse Practitioner Family; Referring Provider Nurse Practitioner Family; Visit Provider Psychiatry & Neurology Neurology | DX: G50.0 Trigeminal neuralgia (principal); R41.3 Other amnesia; G25.0 Essential tremor | CPT/HCPCS: 99214 ==

== ENCOUNTER 2024-07-19 16:00 | Outpatient (CLI) | payer MEDICARE, SELFPAY ==
--- NOTE | 2024-07-19 | DI.US_ITS ---
Exam(s) US LOWER EXTREMITY VENOUS RT EXAM: US LOWER EXTREMITY VENOUS RT CLINICAL HISTORY: PAIN RT CALF, m79.661 TECHNIQUE: Grayscale, color, and doppler imaging of the deep venous system of the right lower extrem ity was performed. COMPARISON: US US ABDOMEN from 05/04/2024 FINDINGS: There is no evidence of intraluminal thrombus and there is normal compression and augmentation demons trated within the common femoral vein, femoral vein, and popliteal vein. In the ipsilateral calf the interrogated veins also exhibit normal compression/ augmentation properti es. The ipsilateral saphenofemoral junction is patent. Incidentally noted is a Lutz's cyst in the popliteal fossa measuring 6 cm length by 3 cm x 1.2 cm IMPRESSION: 1. No evidence of DVT in the right lower extremity. Lutz's cyst noted in the popliteal fossa with measurements as above. DATA REPOSITORY:
== END 2024-07-19 16:20 ==
LOC: DI 16:03
PROVIDERS: PCP Nurse Practitioner Family; Visit Provider Nurse Practitioner Family
DX: M79.661 Pain in right lower leg (principal)
CPT/HCPCS: 93971

== ENCOUNTER 2024-07-20 00:22 | Outpatient (CLI) | payer MEDICARE, SELFPAY ==
--- NOTE | 2024-07-20 14:35 | DI.US_ITS ---
APPROVED REPORT EXAM: Comprehensive 2D, Doppler, and color-flow Echocardiogram Patient Location: Out-Patient Room/Bed: Metal Off Bearer: Che Salmon RDCS (AE) Indications: Aneurysm of ascending aorta w/o rupture Other Information Study Quality: Fair. Technically limited study due to body habitus, arrhythmia. Conclusion Normal left ventricular wall thickness and chamber size. Ejection fraction is 55%. No regional wall motion abnormalities were identified Right ventricle was not well-visualized Left atrium was mildly enlarged. Right atrial size was normal There were no structural valvular abnormalities Ascending aorta measured 3.48 cm Rhythm throughout with either atrial fibrillation, or sinus with atrial premature beats. Recommend e lectrocardiogram for further assessment Wall motion Left Ventricle The left ventricle is normal size. The left ventricular systolic function is normal. The left ventric ular ejection fraction is within the normal range. There is normal left ventricular wall thickness. R egional wall motion is not well visualized but grossly normal. There is no ventricular septal defect visualized. LVEF is 55%. Right Ventricle Right ventricle is not well visualized. Right ventricular systolic function could not be assessed. Atria Left atrium is mildly dilated. The right atrium size is normal. Aortic Valve The aortic valve is normal in structure. Aortic valve is trileaflet. There is no aortic valvular sten osis. No aortic regurgitation is present. Mitral Valve The mitral valve is normal in structure. No evidence of mitral valve stenosis. Trace mitral regurgita tion. Tricuspid Valve The tricuspid valve is normal in structure. There is no tricuspid valve stenosis. Trace tricuspid re gurgitation. Unable to assess PA pressure. Pulmonic Valve The pulmonary valve is normal in structure. There is no pulmonic valvular stenosis. There is no pulmo kashif valvular regurgitation. Great Vessels The aortic root is normal in size. The ascending aorta is mildly dilated. Aortic arch is not well vis ualized. IVC is normal in size and collapses >50% with inspiration. Pericardium Trivial pericardial effusion. 2D Dimensions IVSD d PLAX 0.91 cm F: 0.6-1.0 Ao Root d 3.11 cm F: 2.7 - 3.3 LVPW d PLAX 0.94 cm F: 0.6 - 1.0 Ao Asc Diam d 3.47 cm F: 2.3 - 3.1 LVID d PLAX 4.20 cm F: 3.8 - 5.2 LVDs 3.10 cm F: 2.2 - 3.5 LV EF Teichholz 50.5 % FS 25.39 % LV EDV (Teich) 76.6 mL LV ESV (Teich) 37.9 mL M-Mode TAPSE 1.81 cm (M/F) >1.7 LA Volume LA Length A4C 3.9 cm LA Length A2C 4.0 cm LA Area A4C s 13.20 cm2 LA Area A2C s 12.65 cm2 LA Vol A4C A-L 37.48 mL LA Vol A2C A-L 33.82 mL LA Vol Biplane A-L 35.9 mL LA Vol/BSA A4C A-L LA Vol/BSA A2C A-L LA Vol/BSA BP A-L 21.9 mL/m2 LA Vol A4C MOD 34.6 mL LA Vol A2C MOD 32.1 mL LA Vol BP MOD 33.6 mL LV Diastology MV E' medial 0.067 (>0.07 m/s) MV E Vmax 0.72 (0.4-1.3 m/s) MV E/E' MED 10.81 (<14) MV A Vmax 0.90 (0.4-1.3 m/s) MV E' lateral 0.069 (>0.1 m/s) E/A Ratio 0.8 MV E/E' LAT 10.53 (<14) MV E' Average 0.068 m/s MV E/E'(average) 10.66 Aortic Valve AoV Vmax 1.19 m/s LVOT Vmax 1.06 m/s AoV Peak Grad 5.6 mmHg LVOT Peak Grad 4.5 mmHg AoV Area (Vmax) 2.85 cm2 LVOT VTI 0.221 m AoV VTI 0.244 m LVOT Mean Grad 2.8 mmHg AoV Mean Elijah. 0.89 m/s LVOT SV 70.21 mL AoV Mean Grad 3.5 mmHg LVOT Diam s 2.00 cm AoV Area (VTI) 2.88 cm2 AV Regurg Peak Gr. 5.64 mmHg Velocity Ratio 0.89 Mitral Valve MV DT 298 (160-240 msec) MV Vmax TIPS 1.02 m/s MV Mean Grad 1.3 (<2mmHg) MV VTI 0.375 m Pulmonary Valve PV Vmax 0.99 (0.5-1.5 m/s) RVOT Vmax 0.87 m/s PV Peak Grad 4.0 mmHg RVOT Peak Gr. 3.0 mmHg PV Mean Elijah 0.65 m/s RVOT VTI 0.178 m PV Mean Grad 2.0 mmHg RVOT Mean Gr. 1.5 mmHg Tricuspid Valve RA Pressure 3.00 mmHg TV S' 0.15 m/s
== END 2024-07-20 00:42 ==
LOC: DI 00:23
PROVIDERS: PCP Nurse Practitioner Family; Visit Provider Internal Medicine Cardiovascular Disease
DX: I71.21 Aneurysm of the ascending aorta, without rupture (principal)
CPT/HCPCS: 93306

== ENCOUNTER 2024-11-07 16:51 | Outpatient (REF) | payer MEDICARE, SELFPAY ==
[2024-11-08 09:26] LABS: Measles IgG Antibody Positive (See Note); Mumps Antibody IgG Positive (See Note); Rubella IgG Ab (UVM) Positive (See Note)
== END 2024-11-07 16:52 | disposition home or self-care (01) ==
LOC: NCHCN 16:51
PROVIDERS: PCP Nurse Practitioner Family; Visit Provider Nurse Practitioner Family
DX: Z11.59 Encounter for screening for other viral diseases (principal)
CPT/HCPCS: 86735; 86762; 86765

== ENCOUNTER 2024-11-16 14:42 | Outpatient (CLI) | payer MEDICARE, SELFPAY ==
--- NOTE | 2024-11-16 | DI.RAD_ITS ---
Exam(s) XR CHEST 2V PA LATERAL EXAM: XR CHEST 2V PA LATERAL CLINICAL HISTORY: PRODUCTIVE COUGH,R05.8 TECHNIQUE: 2D digital imaging was performed. Two views. COMPARISON: CR,XR XR CHEST 2V PA LATERAL from 12/11/2023 FINDINGS: HEART: Normal size. Aorta: Not dilated. PULMONARY VASCULATURE: Normal. MEDIASTINUM: Unremarkable. LUNGS: Clear. PLEURAL SPACE: No pleural effusion or pneumothorax. BONE: severe dextro rotoscoliosis. SOFT TISSUES: Unremarkable. IMPRESSION: No acute abnormality. DATA REPOSITORY: RADIATION DOSE DELIVERED:
== END 2024-11-16 15:02 ==
LOC: DI 14:42
PROVIDERS: PCP Nurse Practitioner Family; Visit Provider Nurse Practitioner Family
DX: R05.8 Other specified cough (principal)
CPT/HCPCS: 71046

== ENCOUNTER → 2024-11-22 08:02 | Outpatient (BNVA) | payer MEDICARE, SELFPAY | PROVIDERS: PCP Nurse Practitioner Family; Referring Provider Nurse Practitioner Family; Visit Provider Physician Assistant Surgical | DX: M41.9 Scoliosis, unspecified (principal); R06.00 Dyspnea, unspecified; I44.4 Left anterior fascicular block; R42 Dizziness and giddiness | CPT/HCPCS: 99205 ==

== ENCOUNTER 2024-11-22 09:08 | Outpatient (CLI) | payer MEDICARE, SELFPAY ==
--- NOTE | 2024-11-22 09:30 | RT.EKG_ITS ---
APPROVED REPORT Exam: Resting ECG Reason for Exam: shown on ECHO Patient Location: O HR:80 bpm ECG Measurements Heart Rate 80 AXIS NM 167 P 69 QRSd 102 QRS -37 QT 367 T 77 QTc 424 Conclusion Sinus rhythm...normal P axis, V-rate 50- 99 Ventricular premature beats Left anterior fascicular block Possible anteroseptal infarct, age indeterminate...Q >35mS, T neg, V1-V2
== END 2024-11-22 09:09 | disposition home or self-care (01) ==
PROVIDERS: PCP Nurse Practitioner Family; Visit Provider Physician Assistant Surgical
DX: I48.91 Unspecified atrial fibrillation (principal); R06.00 Dyspnea, unspecified; I44.4 Left anterior fascicular block
CPT/HCPCS: 99205; 93005; 93010

== ENCOUNTER → 2024-12-03 13:08 | Outpatient (BNVA) | payer MEDICARE, SELFPAY | PROVIDERS: PCP Nurse Practitioner Family; Referring Provider Nurse Practitioner Family; Visit Provider Psychiatry & Neurology Neurology | DX: G50.0 Trigeminal neuralgia (principal); R41.3 Other amnesia; G25.0 Essential tremor | CPT/HCPCS: 99214 ==

== ENCOUNTER 2024-12-12 12:45 | Outpatient (CLI) | payer MEDICARE, SELFPAY ==
--- NOTE | 2024-12-12 12:45 | RT.EKG_ITS ---
APPROVED REPORT Exam: Resting ECG Reason for Exam: baseline Patient Location: O HR:84 bpm ECG Measurements Heart Rate 84 AXIS CA 156 P -15 QRSd 91 QRS -38 QT 380 T 68 QTc 450 Conclusion Sinus rhythm Atrial premature beats Left anterior fascicular block Late transition
== END 2024-12-12 12:46 | disposition home or self-care (01) ==
LOC: DI.CARD 12:55
PROVIDERS: PCP Nurse Practitioner Family; Referring Provider Physician Assistant Surgical; Visit Provider Registered Nurse
DX: I71.40 Abdominal aortic aneurysm, without rupture, unspecified (principal); I44.4 Left anterior fascicular block; R06.00 Dyspnea, unspecified
CPT/HCPCS: 93010

== ENCOUNTER → 2024-12-12 12:45 | Outpatient (BNVA) | payer MEDICARE, SELFPAY | PROVIDERS: PCP Nurse Practitioner Family; Referring Provider Physician Assistant Surgical; Visit Provider Registered Nurse | DX: R06.09 Other forms of dyspnea (principal); I71.40 Abdominal aortic aneurysm, without rupture, unspecified; Z87.898 Personal history of other specified conditions | CPT/HCPCS: 99204; 93005 ==

== ENCOUNTER 2024-12-14 11:55 | Outpatient (CLI) | payer MEDICARE, SELFPAY | END 2024-12-14 11:56 | disposition home or self-care (01) | PROVIDERS: PCP Nurse Practitioner Family; Referring Provider Registered Nurse; Visit Provider Registered Nurse | DX: Z87.898 Personal history of other specified conditions (principal); R00.2 Palpitations | CPT/HCPCS: 93246 ==

== ENCOUNTER 2024-12-24 14:25 | Outpatient (REF) | payer MEDICARE, SELFPAY ==
[2024-12-24 15:34] LABS: Anion Gap 10.1 mmol/L (3-11); BUN 19 mg/dL (7-18); CO2 23.9 mmol/L (21.0-32.0); CREATININE 1.1 mg/dL (0.55-1.02); Calcium 9.4 mg/dL (8.5-10.1); Chloride 108 mmol/L (98-107); Estimated GFR 54.73 (mL/min/1.73m2); Glucose 102 mg/dL (74-106); Potassium 4.2 mmol/L (3.5-5.1); Sodium 142 mmol/L (136-145); Vitamin D 25 Total 51 ng/mL (30-100)
== END 2024-12-24 14:26 | disposition home or self-care (01) ==
LOC: NCHCN 14:25
PROVIDERS: PCP Nurse Practitioner Family; Visit Provider Nurse Practitioner Family
DX: M85.89 Other specified disorders of bone density and structure, multiple sites (principal); N28.9 Disorder of kidney and ureter, unspecified
CPT/HCPCS: 80048; 82306

== ENCOUNTER 2024-12-31 06:00 | Outpatient (CLI) | payer MEDICARE, SELFPAY ==
--- NOTE | 2024-12-31 06:30 | ETT_ITS ---
APPROVED REPORT Exam: Exercise Treadmill Patient Location: Out-Patient Room/Bed: Stress Nurse: Radha Powell RN Ordering Provider:SOCORRO BARBERABE, Contact Number: [phone] BMI: 22.49 Baseline Rhythm: Sinus Rhythm Comment: Occasional PAC's Indications: LAFB, BARRON Medical History Medical History: AAA, anxiety, depression, dizziness, trigeminal neuralgia Cardiac Medications: Bupropion, meloxicam, vitamin B, albuterol, baclofen, benzonatate, magnesium oxide, mybetrique, zonisamide Allergies: Oxycodone, ciprofloxacin, alprazolam, predisone, sulfas Cardiac Risk Factors: Previous smoker Previous Cardiac Procedures: None Pretest Chest Pain Characteristics: None Exercise History: Physically active Physical Disabilities: None Lung Sounds: Clear to auscultation Heart Sounds: Irregular Stress Test Details Test: Exercise stress testing was performed using a Eugene protocol. Rest Stress HR Resting HR Supine: 67 bpm Max Heart Rate (APMHR): 152 bpm Resting HR Standin bpm Target HR (85% APMHR): 129 bpm Max HR Achieved: 150 bpm % of APMHR: 99 Recovery HR: 77 bpm HR response to stress: Normal HR response to stress BP Resting BP Supine: 138/72 mmHg Resting BP Standin/82 mmHg Max BP: 160/84 mmHg Recovery BP: 122/82 mmHg BP response to stress: Normal blood pressure response to stress. ECG Resting ECG: Sinus Rhythm Ectopy: Occasional PAC's Stress ECG: Sinus Rhythm ST Change: No significant ST segment changes noted Arrhythmia: Occasional PAC's, Occasional PVC's Recovery ECG: Sinus Rhythm Recovery ST Change: No significant ST segment changes noted Recovery Arrhythmia: Occasional PAC's, occasional PVC's Clinical Reason for Termination: Fatigue Stress Symptoms: General Fatigue Exercise duration: 09 min13 sec Highest Stage Reached: Stage 4: 4.2 mph at 16% grade. Exercise capacity: 10.50 METs Angina Score: None Mike Treadmill Score: 8.5 Rate Pressure Product: 34007 Stress ECG Conclusion 1. Resting electrocardiogram showed low voltage late transition 2. Patient exercised on Eugene protocol completed workload of 10 METS 3. Normal heart rate and blood pressure response to exercise. Patient achieved 90% of maximal predicted heart rate for age 4. There was no electrocardiographic evidence of myocardial ischemia 5. There were no significant dysrhythmias Mike Treadmill Score is 8.5 which is Low risk. Stress Test Summary STAGE Time (mins) Speed (mph) Grade (%) HR BP SpO2 SYMPTOMS METS Supine 67 138/72 Standing 86 122/82 1 3 1.7 10 103 158/88 96% 4.5 2 6 2.5 12 114 160/84 98% 7 3 9 3.4 14 148 98% 10 4 12 4.2 16 150 98% 13 1 min recovery 121 148/80 98% 3 min recovery 86 148/90 98% 6 min recovery 77 122/82 97% Test ended per patients request due to fatigue. Patient left ambulatory in no apparent distress.
== END 2024-12-31 06:20 ==
LOC: DI 06:42
PROVIDERS: PCP Nurse Practitioner Family; Visit Provider Internal Medicine Cardiovascular Disease
DX: I44.4 Left anterior fascicular block (principal); R06.09 Other forms of dyspnea
CPT/HCPCS: 93016; 93018; 93017

== ENCOUNTER 2024-12-31 18:24 | Outpatient (REF) | payer MEDICARE, SELFPAY ==
[2024-12-31 15:21] LABS: Bilirubin Negative (Negative); Blood Negative (Negative); Clarity Clear (Clear); Glucose Negative (Negative); Ketones Trace mg/dL (Negative); Leukocyte Esterase Trace (Negative); Nitrite Negative (Negative); Specific Gravity 1.015 (1.005-1.025)
[2024-12-31 15:43] LABS: Bacteria Few HPF (Negative); C & S Indicated? No; Casts Negative LPF (Negative); Crystals Negative HPF (Negative); Epithelial Cells Few HPF (Negative); Mucus Negative (Negative); RBC 0-2 HPF (0-2)
== END 2024-12-31 18:25 | disposition home or self-care (01) ==
LOC: NCHCN 18:24
PROVIDERS: PCP Nurse Practitioner Family; Visit Provider Nurse Practitioner Family
DX: N28.9 Disorder of kidney and ureter, unspecified (principal); B96.29 Other Escherichia coli [E. coli] as the cause of diseases classified elsewhere
CPT/HCPCS: 81003; 81015

== ENCOUNTER 2025-01-08 06:49 | Outpatient (CLI) | payer MEDICARE, SELFPAY ==
--- NOTE | 2025-01-08 11:55 | CER_ITS ---
Date of service: 01/08/25 Time of Service: 11:55 Cardiac Event Recorder Referring Provider:: Sobeida Ochoa Indications:: Syncope Cardiac Event Note: This is a cardiac event monitor. Patient was monitored for 13 days and 20 hours. Predominant rhythm was sinus with an average heart rate of 84. Minimum was 51, maximum 155. There were very rare isolated ventricular ectopic beats. There was one run of nonsustained ventricular tachycardia 13 beats in length. There were frequent atrial premature beats. There were multiple brief self- limited atrial runs. These were generally 5 or 6 beats in duration There was no atrial fibrillation, no high-grade AV block, no pauses greater than 3 seconds. No symptoms were reported
== END 2025-01-08 06:50 | disposition home or self-care (01) ==
LOC: CARDOPNVT 06:49
PROVIDERS: PCP Nurse Practitioner Family; Visit Provider Internal Medicine Cardiovascular Disease
DX: R55 Syncope and collapse (principal); I49.3 Ventricular premature depolarization; I49.1 Atrial premature depolarization; R06.00 Dyspnea, unspecified
CPT/HCPCS: 93248

== ENCOUNTER 2025-01-10 10:10 | Outpatient (REF) | payer MEDICARE, SELFPAY ==
[2025-01-10 15:40] LABS: Clarity Clear (Clear)
[2025-01-10 15:41] LABS: Bacteria Many HPF (Negative); Bilirubin Color Interference (Negative); Blood Color Interference (Negative); C & S Indicated? No/Sq. Contamination; Casts Negative LPF (Negative); Crystals Negative HPF (Negative); Epithelial Cells Moderate HPF (Negative); Glucose Color Interference mg/dL (Negative); Ketones Color Interference mg/dL (Negative); Leukocyte Esterase Color Interference (Negative); Mucus Negative (Negative); Nitrite Color Interference (Negative); Other Cells Rare Renal (Negative); Urobilinogen Color Interference mg/dL (Up to 0.2); WBC >50 HPF (0-5)
== END 2025-01-10 10:11 | disposition home or self-care (01) ==
LOC: NCHCN 10:10
PROVIDERS: PCP Nurse Practitioner Family; Visit Provider Nurse Practitioner Family
DX: R39.9 Unspecified symptoms and signs involving the genitourinary system (principal); Z87.440 Personal history of urinary (tract) infections; R82.89 Other abnormal findings on cytological and histological examination of urine
CPT/HCPCS: 81003; 81015; 87086

== ENCOUNTER 2025-01-11 00:21 | Outpatient (CLI) | payer MEDICARE, SELFPAY ==
--- NOTE | 2025-01-11 12:30 | DI.US_ITS ---
APPROVED REPORT EXAM: Comprehensive 2D, Doppler, and color-flow Echocardiogram Other Information Study Quality: Fair Conclusion Normal left ventricular wall thickness and chamber size. Ejection fraction is 55 to 60%. Wall motion is normal Normal right ventricular size and function Both atria are normal in size There is no structural or hemodynamically significant valvular disease Ascending aorta measures 3.4 cm Wall motion Left Ventricle The left ventricle is normal size. The left ventricular systolic function is normal. The left ventricular ejection fraction is within the normal range. There is normal left ventricular wall thickness. There is normal LV segmental wall motion. There is no ventricular septal defect visualized. LVEF is 55-60%. Right Ventricle The right ventricle is normal size. The right ventricular systolic function is normal. Atria The left atrium size is normal. The right atrium size is normal. The interatrial septum is intact with no evidence for an atrial septal defect. Aortic Valve The aortic valve is normal in structure. Aortic valve is trileaflet. There is no aortic valvular stenosis. No aortic regurgitation is present. Mitral Valve Mild mitral annular calcification. No evidence of mitral valve stenosis. Trace mitral regurgitation. Tricuspid Valve The tricuspid valve is normal in structure. There is no tricuspid valve stenosis. Trace tricuspid regurgitation. Pulmonic Valve The pulmonary valve is normal in structure. There is no pulmonic valvular stenosis. Mild pulmonic regurgitation. Great Vessels The aortic root is normal in size. The ascending aorta is mildly dilated. IVC is normal in size and collapses >50% with inspiration. Pericardium There is no pericardial effusion. 2D Dimensions IVSD d PLAX 0.95 cm F: 0.6-1.0 Ao Root d 3.12 cm F: 2.7 - 3.3 LVPW d PLAX 0.97 cm F: 0.6 - 1.0 Ao Asc Diam d 3.40 cm F: 2.3 - 3.1 LVID d PLAX 4.69 cm F: 3.8 - 5.2 LVDs 3.34 cm F: 2.2 - 3.5 LV EF Teichholz 55.2 % FS 28.68 % LV EDV (Teich) 101.7 mL LV ESV (Teich) 45.5 mL Stroke Vol Index (Teich) 35.99 M-Mode TAPSE 2.98 cm (M/F) >1.7 Auto EF LV EDV A4C 93.2 mL LV EDV A2C 97.7 mL LV EDV BP 96.8 mL LV ESV A4C 42.3 mL LV ESV A2C 39.2 mL LV ESV BP 40.4 mL LVEF(%) A4C 54.6 % LVEF(%) A2C 59.9 % LVEF(%) BP 58.2 % LV SV A4C 50.9 ml LV SV A2C 58.6 ml LV SV BP 56.3 ml LV CO A4C 3.4 L/min LV CO A2C 3.6 L/min LV CO BP 3.5 L/min HR A4C 66.77 BPM HR A2C 61.75 BPM LV EDV Index (BP) LA Volume LA Length A4C 4.3 cm LA Length A2C 3.8 cm LA Area A4C s 10.85 cm2 LA Area A2C s 10.62 cm2 LA Vol A4C A-L 23.20 mL LA Vol A2C A-L 25.03 mL LA Vol Biplane A-L 25.6 mL LA Vol/BSA A4C A-L LA Vol/BSA A2C A-L LA Vol/BSA BP A-L 16.4 mL/m2 LA Vol A4C MOD 23.1 mL LA Vol A2C MOD 23.9 mL LA Vol BP MOD 24.5 mL RA Volume RA Area A4C 10.2 cm2 RA ESV A4C (A-L) 19.5mL RA Vol/BSA A4C A-L RA Length A4C 4.5 cm RA ESV A4C (MOD) 18.8mL LV Diastology MV E' medial 0.080 (>0.07 m/s) MV E Vmax 0.62 (0.4-1.3 m/s) MV E/E' MED 7.76 (<14) MV A Vmax 0.90 (0.4-1.3 m/s) MV E' lateral 0.097 (>0.1 m/s) E/A Ratio 0.7 MV E/E' LAT 6.41 (<14) MV E' Average 0.089 m/s MV E/E'(average) 7.02 Aortic Valve AoV Vmax 1.68 m/s LVOT Vmax 0.86 m/s AoV Peak Grad 11.3 mmHg LVOT Peak Grad 3.0 mmHg AoV Area (Vmax) 1.03 cm2 LVOT VTI 0.199 m AoV VTI 0.388 m LVOT Mean Grad 1.8 mmHg AoV Mean Elijah. 1.17 m/s LVOT SV 40.13 mL AoV Mean Grad 6.2 mmHg LVOT Diam s 1.60 cm AoV Area (VTI) 1.03 cm2 AV Regurg Peak Gr. 11.32 mmHg Velocity Ratio 0.51 Mitral Valve MV DT 203 (160-240 msec) Pulmonary Valve PV Vmax 0.97 (0.5-1.5 m/s) RVOT Vmax 0.88 m/s PV Peak Grad 3.7 mmHg RVOT Peak Gr. 3.1 mmHg PV Mean Elijah 0.67 m/s RVOT VTI 0.183 m PV Mean Grad 2.1 mmHg RVOT Mean Gr. 1.7 mmHg
== END 2025-01-11 00:41 ==
LOC: DI 00:21
PROVIDERS: PCP Nurse Practitioner Family; Visit Provider Internal Medicine Cardiovascular Disease
DX: R06.02 Shortness of breath (principal)
CPT/HCPCS: 93306

== ENCOUNTER 2025-01-21 18:53 | Outpatient (REF) | payer MEDICARE, SELFPAY ==
--- NOTE | 2025-01-21 15:25 | PAPFT_PTH ---
PATIENT: Naomi Conklin LOC: [facility]#:[id number] AGE/SX: 69/F ROOM: RE01/21/[address]: Gail Donald : 1955 BED: DIS: 01/21/2025 SPEC #: [id number] RECD: 01/22/25 11:34 STATUS: GARETH REQ #: [id number] KATHARINE: 01/21/25 15:[address]: Gail Donald DEPT: [facility] Cytology RECD BY: Sharon Russell Tissues: 1 - CX/ENDOCX FOR PAP SMEARS Procedures: PAP THIN PREP/[facility] Screening HPV DNA PROBE Comments: [id number] (HPV 16 & 18/45)
== END 2025-01-21 18:54 | disposition home or self-care (01) ==
LOC: NCHCN 18:53
PROVIDERS: PCP Nurse Practitioner Family; Visit Provider Nurse Practitioner Family
DX: R10.2 Pelvic and perineal pain (principal); R14.0 Abdominal distension (gaseous)
CPT/HCPCS: 88142; 87624

== ENCOUNTER 2025-01-29 03:50 | Outpatient (CLI) | payer MEDICARE, SELFPAY ==
[2025-01-29] MEDS: Albuterol HFA 18 GM 200 PUFF INH IH (14:31)
[2025-01-29] MEDS: Inhaler, Assist Device 1 EACH MC (14:31)
[2025-01-29] MEDS: Methacholine 100 MG VIAL IH (14:31)
--- NOTE | 2025-02-11 09:26 | W.PFT ---
Date of service: 01/29/25 Time of Service: 12:54 Pulmonary Function Test Result Indications: Dyspnea Impression 1. Good patient effort was noted. ATS standards for reproducibility were met. 2. Spirometry showed a mild obstructive lung disease with an FEV1 of 94% (2.02 L) 3. At 1 mg/mL of methacholine, there was a 35% drop in FEV1 Conclusion: - mild obstructive lung disease - positive methacholine challenge test
== END 2025-01-29 03:51 | disposition home or self-care (01) ==
LOC: RT 03:51
PROVIDERS: PCP Nurse Practitioner Family; Referring Provider Physician Assistant Surgical; Visit Provider Internal Medicine Pulmonary Disease
DX: R06.09 Other forms of dyspnea (principal); J44.9 Chronic obstructive pulmonary disease, unspecified
CPT/HCPCS: 94070; 95070; J7674

== ENCOUNTER → 2025-01-30 08:54 | Outpatient (BNVA) | payer MEDICARE, SELFPAY | PROVIDERS: PCP Nurse Practitioner Family; Referring Provider Nurse Practitioner Family; Visit Provider Internal Medicine Pulmonary Disease | DX: R06.00 Dyspnea, unspecified (principal); J45.40 Moderate persistent asthma, uncomplicated; J98.09 Other diseases of bronchus, not elsewhere classified | CPT/HCPCS: 94667; 99215 ==

== ENCOUNTER 2025-02-12 03:08 | Outpatient (CLI) | payer MEDICARE, SELFPAY ==
--- NOTE | 2025-02-12 | DI.US_ITS ---
Exam(s) US PELVIS TRANSVAGINAL EXAM: US PELVIS TRANSVAGINAL CLINICAL HISTORY: Abd bloating, R14.0-abdominal distention (gaseous) TECHNIQUE: Transabdominal and transvaginal imaging was performed using standard protocol. COMPARISON: CT CT THORAX CTA from 03/15/2023 CR XR DEXA BONE DENSITY W/WO NAVID from 04/19/2024 CR XR CHEST 2V PA LATERAL from 11/16/2024 FINDINGS: Arm the transabdominal images are severely limited by large quantity of bowel gas/stool. UTERUS: Anteverted. 3.9 x 2.2 x 3.9 cm Endometrium: 5 mm . thickened for postmenopausal patient. Mildly heterogeneous. Myometrium: Unremarkable. Cervix: Calcifications. OVARIES: Right: Not visualized Left: 8 x 19 by 19 millimeters. Cyst or mass: None. CUL-DE-SAC: Free fluid: None. IMPRESSION: Heterogeneous mildly thickened endometrial stripe, measuring 5 millimeters. Unremarkable left ovary. The right ovary was not identified. DATA REPOSITORY:
== END 2025-02-12 03:28 ==
LOC: DI 03:08
PROVIDERS: PCP Nurse Practitioner Family; Visit Provider Nurse Practitioner Family
DX: R14.0 Abdominal distension (gaseous) (principal); R93.89 Abnormal findings on diagnostic imaging of other specified body structures
CPT/HCPCS: 76830; 76856

== ENCOUNTER 2025-02-12 16:28 | Outpatient (REF) | payer MEDICARE, SELFPAY | END 2025-02-12 16:29 | disposition home or self-care (01) | LOC: NCHCN 16:28 | PROVIDERS: PCP Nurse Practitioner Family; Visit Provider Family Medicine | DX: R30.0 Dysuria (principal) | CPT/HCPCS: 87077; 87086; 87186 ==

== ENCOUNTER 2025-02-27 15:12 | Outpatient (REF) | payer MEDICARE, SELFPAY ==
--- NOTE | 2025-02-27 14:44 | ENDOMET_PTH ---
PATIENT: Naomi Conklin LOC: [facility] U#:[id number] AGE/SX: 69/F ROOM: RE02/27/[address]: Juliana Powell DO : 1955 BED: DIS: 02/27/2025 SPEC #: [id number] RECD: 02/27/25 16:11 STATUS: GARETH REQ #: [id number] KATHARINE: 02/27/25 14:[address]: Juliana Powell DEPT: Surgical Specimen RECD BY: Donna Pérez ENTERED: 02/27/25 16:12 SP TYPE: Endomet OTHR DR: Gail Donald Tissues: 1 - ENDOMETRIUM BX/ALENA Procedures: GROSS AND MICRO LEVEL 4 Comments: [id number]
== END 2025-02-27 15:13 | disposition home or self-care (01) ==
LOC: LBN 15:12
PROVIDERS: PCP Nurse Practitioner Family; Visit Provider Obstetrics & Gynecology
DX: N85.00 Endometrial hyperplasia, unspecified (principal)
CPT/HCPCS: 88305

== ENCOUNTER 2025-04-04 20:15 | Outpatient (REF) | payer MEDICARE, SELFPAY | END 2025-04-04 20:16 | disposition home or self-care (01) | LOC: NCHCN 20:15 | PROVIDERS: PCP Nurse Practitioner Family; Visit Provider Nurse Practitioner Family | DX: N30.10 Interstitial cystitis (chronic) without hematuria (principal) | CPT/HCPCS: 87077; 87086; 87186 ==

== ENCOUNTER 2025-04-25 16:05 | Outpatient (REF) | payer MEDICARE, SELFPAY | END 2025-04-25 16:06 | disposition home or self-care (01) | LOC: NCHCN 16:05 | PROVIDERS: PCP Nurse Practitioner Family; Visit Provider Nurse Practitioner Family | DX: R39.9 Unspecified symptoms and signs involving the genitourinary system (principal) | CPT/HCPCS: 87077; 87086; 87186 ==

== ENCOUNTER → 2025-04-30 08:00 | Outpatient (BNVA) | payer MEDICARE, SELFPAY | PROVIDERS: PCP Nurse Practitioner Family; Referring Provider Nurse Practitioner Family; Visit Provider Nurse Practitioner Gerontology | DX: N30.10 Interstitial cystitis (chronic) without hematuria (principal); M62.89 Other specified disorders of muscle; R10.20 Pelvic and perineal pain unspecified side | CPT/HCPCS: 99214 ==

== ENCOUNTER 2025-05-07 00:08 | Outpatient (CLI) | payer MEDICARE, SELFPAY ==
[2025-05-07 08:24] LABS: Glucose Negative (Negative)
[2025-05-07 08:31] LABS: WBC >50 HPF (0-5)
[2025-05-07 08:59] LABS: Abs Immature Grans 0.03 10^3/uL (0.0-0.06); HCT 39.6 % (36.0-46.0); HGB 13.0 g/dL (11.2-15.7); Immature Grans % 0.4 %; MCH 29.0 pg (27.0-33.0); MCHC 32.8 % (32.0-36.0); MCV 88 fL (80-95); MPV 10.7 fL (8.0-11.0); Platelet Count 267 10^3/uL (130-400); RBC 4.48 10^6/uL (3.93-5.22); RDW 13.2 % (11.7-14.6); RDW-SD 43.3 fL; WBC 8.42 10^3/uL (4.4-10.8)
== END 2025-05-07 00:09 | disposition home or self-care (01) ==
LOC: LBO 00:08
PROVIDERS: Nurse Practitioner Gerontology; PCP Nurse Practitioner Family; Visit Provider Obstetrics & Gynecology
DX: M62.89 Other specified disorders of muscle (principal); N30.10 Interstitial cystitis (chronic) without hematuria; Z01.818 Encounter for other preprocedural examination
CPT/HCPCS: 36415; 86850; 86900; 86901; 87077; 81003; 81015; 85025; 87086; 87186

== ENCOUNTER 2025-05-14 00:53 | Outpatient (CLI) | payer MEDICARE, SELFPAY ==
--- NOTE | 2025-05-14 06:15 | DI.US_ITS ---
Exam(s) US RENAL EXAM: US RENAL CLINICAL HISTORY: Evaluate kidneys and bladder,H/O UTI,Z87.440 TECHNIQUE: Ultrasound of both kidneys performed using standard protocol. COMPARISON: US US PELVIS TRANSVAGINAL from 02/12/2025 FINDINGS: RIGHT KIDNEY: Length cannot be obtained because of abundant bowel gas adjacent to the lower pole. Length is probably within normal limits. Lower pole of the right kidney is not well seen in the longitudinal plane normal cortical thickness and corticomedullary differentiation .No solid masses No intrarenal calculi nor hydronephrosis. LEFT KIDNEY: Measures 9.7 cm in length. No cysts evident. Normal cortical thickness and corticomedullary differentiaion. No solids masses. No intrarenal calculi nor hydonephrosis. URINARY BLADDER: Prevoid volume is 10 cc Postvoid volume is 0 cc Difficult to accurately assess the bladder lumen given that there is only 10 cc of urine in the bladder lumen at the time of this examination. Ureterovesical jets: Both not identified. IMPRESSION: 1. No significant focal ultrasound findings in the kidneys. However, please note that the lower 3rd of the right kidney was not able to be adequately studied due to significant adjacent bowel gas. 2. No hydronephrosis evident Urinary bladder difficult to assess as contained only 10 cc of urine DATA REPOSITORY:
== END 2025-05-14 01:13 ==
LOC: DI 00:53
PROVIDERS: PCP Nurse Practitioner Family; Visit Provider Obstetrics & Gynecology
DX: Z87.440 Personal history of urinary (tract) infections (principal)
CPT/HCPCS: 76770

== ENCOUNTER 2025-05-22 09:26 | Day surgery (SDC) | payer MEDICARE, SELFPAY ==
[2025-05-22] VITALS (16 sets, daily range): BP systolic 101–128; BP diastolic 54–93; PULSE 67–86; RESP 11–19; TEMP 36.1–36.6; O2SAT 93–99; BMI 23.7
[2025-05-22] MEDS: Lactated Ringers 1,000 ML 80 ML IV (10:20)
--- NOTE | 2025-05-22 11:03 | W.ANESPRE ---
General Info Date of Service Date Performed: 05/22/25 Height: 5 ft 4 in Weight: 62.7 kg Body Mass Index (BMI): 23.7 Surgical Procedure: Operation Date: 05/22/25 10:10 Proposed Procedure Side Surgeon p Dilation & Curettage with Hysteroscopy Juliana Powell DO Meds Allergies and Home Medications Allergies Allergy/AdvReac Type Severity Reaction Status Date / Time oxycodone (From Percocet) Allergy Severe unknown Verified 05/22/25 09:58 ciprofloxacin (From Cipro) Allergy Intermediate achilles Verified 05/22/25 09:58 tendonitis alprazolam (From Xanax) AdvReac Mild Nausea Verified 05/22/25 09:58 prednisone AdvReac Unknown Unknown Verified 05/21/25 14:30 Sulfa (Sulfonamide AdvReac Rash Verified 05/21/25 14:30 Antibiotics) Home Medication Medication Instructions Recorded bupropion HCl 200 mg tablet,12 hr 200 mg PO BID 11/20/21 sustained-release (Wellbutrin SR) vitamin B complex (Complex B-100 1 tab PO DAILY 05/14/24 tablet,extended release) baclofen 5 mg tablet 5 mg PO TID PRN 05/22/24 magnesium oxide 400 mg PO BID PRN 05/22/24 buspirone 10 mg tablet 10 mg PO BID PRN 12/03/24 zonisamide 100 mg capsule 400 mg (4 x 100 mg) PO HS #360 caps 12/11/24 fluticasone furoate 100 1 inh inhalation DAILY 01/30/25 mcg/actuation blister powder for inhalation (Arnuity Ellipta) albuterol sulfate 90 mcg/actuation 2 puff inhalation Q4H #8.5 grams 02/11/25 aerosol inhaler (Ventolin HFA) acetylcysteine 600 mg capsule 600 mg PO BID 02/20/25 meloxicam 7.5 mg tablet 7.5 mg PO DAILY PRN 05/21/25 Current Visit Medications: Current Medications Generic Name Dose Route Start Last Admin Trade Name Freq PRN Reason Stop Dose Admin Ringer's Solution 1,000 mls @ 80 mls/hr 05/22/25 06:00 05/22/25 10:20 IV 05/22/25 23:59 80 mls/hr INFUSION LAURA Administration IV Miscellaneous Supplies 1 each 05/22/25 06:00 Iv Access IV 05/22/25 23:59 DIRECTED LAURA Sodium Chloride 0 ml 05/22/25 06:00 Normal Saline Flush 10 Ml Syr IV 05/22/25 23:59 PRN PRN Sodium Chloride 0 ml 05/22/25 06:00 Normal Saline 10 Ml Vial IJ 05/22/25 23:59 DIRECTED PRN Sterile Water 0 ml 05/22/25 06:00 Water,Injection,Sterile 10 Ml Vial IJ 05/22/25 23:59 DIRECTED PRN PFSH Active Problems Active Problems: Problem Status Onset Code Thickened endometrium Acute R93.89 Postmenopausal bleeding Acute N95.0 Moderate persistent asthma Acute J45.40 Bronchomalacia, acquired Acute J98.09 BARRON (dyspnea on exertion) Acute R06.09 Dizziness Acute R42 Left anterior fascicular block (LAFB) Acute I44.4 Trigeminal neuralgia Acute G50.0 Aphasia Acute R47.01 Disoriented Acute R41.0 Lesion of skin of face Acute L98.9 Fatigue Acute R53.83 Elevated d-dimer Acute R79.89 Acute rhinosinusitis Acute J01.90 Seborrheic keratosis Acute L82.1 Diastolic dysfunction Acute I51.89 Dyspnea Acute R06.00 Left inguinal hernia Acute K40.90 Actinic keratosis Acute L57.0 Osteopenia Acute M85.80 Left upper quadrant pain Acute R10.12 Essential tremor Acute G25.0 Memory loss Acute R41.3 Pelvic floor dysfunction Acute M62.89 Neck pain Acute M54.2 Interstitial cystitis Acute N30.10 Screening for colon cancer Acute Z12.11 Trigeminal neuralgia of left side of face Acute G50.0 Genital warts Acute A63.0 Medical History Medical History (Updated 05/22/25 @ 10:05 by Mary Cruz) Eating disorder Obstructive lung disease Breast lump Family history of diabetes mellitus Hx of urinary tract infection H/O renal impairment AAA (abdominal aortic aneurysm) Per [facility] 08/01/23 4.2 RH. Pt. reports this is a descending aortic aneurysm Neurologic abnormality Pt. stated she had what she was told something that mimicked a stroke, but wasn't one, lost some cognitive, but has regained most (75%) of the cognitive abilitiy, they put me in to the questionable MS category Anxiety Sciatica Scoliosis Depression Lactose intolerance Gluten intolerance Serrated adenoma of colon Medical History Comments:: Pt. reports vomiting with breast implants Surgical History Surgical History S/P silicone breast implant History of colonoscopy (~06/2008) 2021 2009 Tobacco Smoking/Tobacco Use Status: Former Tobacco Use Alcohol Alcohol Intake: current Alcohol intake frequency: holidays/special occasions only Substance Use Substance use: Occasionally Substance use type: marijuana Details: Pt states 2xwk, a couple of puffs. alcohol: t-2, sips Prental History History 4 Para 3 Hx # Term Pregnancies 3 Multiple births Hx # Pregnancies Ectopic pregnancies AB induced Hx Number of Living Children 3 AB spontaneous 1 Past Pregnancies Del. Date GA/Weeks # Preg Succ Route Wgt Sex Labor Lgth Anesthesia Location Prov Complic 08/07/83 No Yes vaginal 3401.943 g Male hyanis Mass 12/26/86 No Yes vaginal 3940.584 g Male hyanis mass 10/09/92 No Yes vaginal 3401.943 g Male hyanis mass Vital Signs and Lab Results Vital Signs Most Recent Vital Signs in EMR: Most Recent Vital Signs Temp Pulse Resp BP Pulse Ox 36.5 C 86 16 116/93 H 98 05/22/25 09:50 05/22/25 09:50 05/22/25 09:50 05/22/25 09:50 05/22/25 09:50 Lab Results Blood Type / Crossmatch: Antibody Screen NEGATIVE 05/07/25 Complete Blood Count: WBC, (4.4-10.8) 8.42 10^3/uL 05/07/25, 08:45 RBC, (3.93-5.22) 4.48 10^6/uL 05/07/25, 08:45 Hgb, (11.2-15.7) 13.0 g/dL 05/07/25, 08:45 Hct, (36.0-46.0) 39.6 % 05/07/25, 08:45 Plt Count, (130-400) 267 10^3/uL 05/07/25, 08:45 Anesthesia Assessment and Plan Anesthesia History Personal History: No History of Anesthesia Complications Family History: No Family History of Anesthesia Complications Exercise Tolerance Exercise Tolerance: Metabolic Equivalents>4 Pertinent Negatives Pertinent Negatives: No Symptoms of GERD Cardiac & Pulmonary Exam Cardiac Exam: Normal S1/S2 Heart Sounds Pulmonary Exam: Clear Bilateral Breath Sounds Implantable Cardiac Device Does patient have a Pacemaker or an ICD?: No Airway Exam Known Difficult Airway: No Mallampati Class: 2 Mouth Opening: Normal (> 3cm) Thyromental Distance: Greater than 3 cm Neck Range of Motion: Limited ROM Neck Circumference: Normal Teeth Condition: Normal Dentition ASA Classification ASA Score: ASA 2 Emergency Case?: No NPO Status NPO Status: NPO Clears >2 hours, Solids >8 hours Anesthesia Plan Resuscitation Status: Full Code Anesthesia Technique: General Anesthesia Airway Planned: LMA Monitors Used: Standard Monitors
--- NOTE | 2025-05-22 11:50 | ENDO_PTH ---
PATIENT: Naomi Conklin LOC: [facility] U#:[id number] AGE/SX: 69/F ROOM: RE05/22/[address]: Juliana Powell DO : 1955 BED: DIS: 05/22/2025 SPEC #: [id number] RECD: 05/22/25 12:57 STATUS: GARETH RE #: [id number] KATHARINE: 05/22/25 11:[address]: Juliana Powell DEPT: Surgical Specimen RECD BY: Donna Pérez ENTERED: 05/22/25 12:58 SP TYPE: Endo OTHR DR: Gail Donald Tissues: 1 - ENDOCERVICAL BX/CURRETTE 2 - ENDOMETRIUM BX/CURRETTE Procedures: GROSS AND MICRO LEVEL 4 Comments: [id number]
--- NOTE | 2025-05-22 12:03 | W.PM.OP ---
Operative Note Operative Note PRE-OP DIAGNOSIS: Postmenopausal bleeding, thickened endometrium POST-OP DIAGNOSIS: same (Endometrial polyp, removed) PROCEDURE: Hysteroscopy, dilation and curettage SURGEON: Juliana Powell ANESTHESIA TYPE: General LMA/ETT Refer to Anesthesia Record ESTIMATED BLOOD LOSS: 5 PATHOLOGY: other (1. Endocervical curettage 2. Endometrial curettage) COMPLICATIONS: None Patient was transported to: PACU Patient's condition: stable Indications: Postmenopausal bleeding, thickened endometrium Findings: Normal-appearing cervix. Uterus midline and mobile, thin irregular endocervical canal. Thin irregular endometrial lining. Flat, polypoid structure at the anterior, fundal region of the uterus. Both tubal ostia visualized. Digital images taken. Procedure Description: After full informed consent was obtained, patient is taken the operating suite with an IV running. She was placed in dorsal supine position and general anesthesia administered. She was then placed in the modified dorsolithotomy position and prepped and draped in usual sterile fashion. A timeout was held. She had pneumatic compression stockings for DVT prophylaxis. No antibiotic prophylaxis was warranted. At this point, a speculum was inserted into the vaginal vault and the cervix identified. A single-tooth tenaculum used to grasp the anterior lip of the cervix and cervical os dilated the point that a 4 mm hysteroscope could be passed without difficulty. Under direct visualization with instillation of normal saline, the endocervical and endometrial cavities were visualized. Endometrial and endocervical canal and cavity appeared smooth, regular and atrophic. Both tubal ostia were visualized. At the apex of the anterior fundus, there was noted to be a flat polypoid lesion. Digital images were taken. At this point the hysteroscope portion was completed with a fluid deficit of 5 mL of normal saline. Fractional curettage performed with for specimen being endocervical with sharp curettage via Kevorkian curette. Second specimen is endometrial curettage via sharp curettage with a banjo curette. With the the curettage, polypoid lesion was also retrieved. At this point, hysteroscopy with dilation and curettage was complete. Single-tooth tenaculum removed from the anterior lip of the cervix and puncture sites are hemostatic. Speculum was removed and the patient was returned to the dorsal supine position. She awoke from anesthesia without difficulty and was taken to the postanesthesia care unit in stable condition. EBL: 5 mL Fluids: Crystalloid per anesthesia with 5 mL of normal saline deficit at hysteroscope Complications: None apparent Pathology: 1. Endocervical curettage 2. Endometrial curettage Findings: As above. Date of Procedure: 05/22/25
--- NOTE | 2025-05-22 12:54 | W.ANESPOSTOP ---
Postoperative Evaluation Date, Time and Location Date Performed: 05/22/25 Time Performed: 12:54 Patient Location: Day Surgery Unit Vital Signs Most Recent Imported Vital Signs: Most Recent Vital Signs Temp Pulse Resp BP Pulse Ox 36.1 C L 73 16 123/82 99 05/22/25 12:35 05/22/25 12:35 05/22/25 12:35 05/22/25 12:35 05/22/25 12:35 Pain Score Most Recent Pain Score: Most Recent Pain Score Pain Level 1 05/22/25 12:35 Assessment Mental Status: Awake (Alert & Oriented to Patient Baseline) Airway and Respiratory Function: Patent airway with normal (patient baseline) respiratory exam Cardiovascular Function: Hemodynamically Stable Hydration Status: Adequately Hydrated Nausea & Vomiting: No Nausea or Vomiting Pain: Pt. Denies Any Pain Peripheral Nerve Block: Patient did not receive a nerve block
== END 2025-05-22 13:44 | disposition home or self-care (01) ==
PROVIDERS: PCP Nurse Practitioner Family; Visit Provider Obstetrics & Gynecology
PROC: 0UDB8ZZ Extraction of Endometrium, Via Natural or Artificial Opening Endoscopic (ICD-10-PCS; CPT 58558; principal; 2025-05-22 10:00)
DX: N95.0 Postmenopausal bleeding (principal); R93.89 Abnormal findings on diagnostic imaging of other specified body structures; N84.0 Polyp of corpus uteri
CPT/HCPCS: 58558; 88305; J0131; J1100; J1885; J2003; J2405; J2704; J3010

== ENCOUNTER → 2025-05-23 10:55 | Outpatient (BNVA) | payer MEDICARE, SELFPAY | PROVIDERS: PCP Nurse Practitioner Family; Referring Provider Nurse Practitioner Family; Visit Provider Internal Medicine Pulmonary Disease | DX: J45.40 Moderate persistent asthma, uncomplicated (principal); J98.09 Other diseases of bronchus, not elsewhere classified; R06.00 Dyspnea, unspecified; Z87.891 Personal history of nicotine dependence; Z29.11 Encounter for prophylactic immunotherapy for respiratory syncytial virus (RSV) | CPT/HCPCS: 99214; 90679 ==

== ENCOUNTER → 2025-05-28 00:26 | Outpatient (CLI) | payer MEDICARE, SELFPAY ==
--- NOTE | 2025-05-28 11:20 | DI.MAMMO_ITS ---
Exam(s) MG MAMMO SCREENING 60 MIN DUR EXAM: MG MAMMO SCREENING 60 MIN DUR CLINICAL HISTORY: SCREENING, Z12.31, IMPLANTS PRESENT. TECHNIQUE: Bilateral full field digital CC and MLO mammographic images were obtained with 3D tomosynthesis and utilizing computer aided detection (CAD). Both conventional and implant displacement views were performed. COMPARISON: Prior mammograms were reviewed. FINDINGS: Again noted are bilateral retropectoral silicone implants with dystrophic calcification again noted anterior to the left implant. There are no new spiculated masses nor malignant appearing microcalcification groups. There is no significant architectural distortion nor skin thickening-retraction. IMPRESSION: No radiographic evidence of malignancy. BI-RADS Category 1 - Negative Breast Density - Category A - The breast are almost entirely fatty. Breast density Category C or D implies that the patient has dense breast tissue. Dense breast tissue can make it harder to find cancer on a mammogram. Dense breast tissue is also associated with an increased risk of breast cancer. This information about the result of the mammogram report was provided to the patient to raise their awareness. Use this report when you speak with the patient about their risks for breast cancer, which includes their family history. At that time, you may recommend additional screening tests (Ultrasound or MRI) as these tests may add significant information. A negative radiographic report should not delay biopsy if a dominant or clinically suspicious mass is present. Up to ten percent of cancers are not identified on mammography. A negative report may reinforce clinical impression. Adenosis and dense breasts may obscure an underlying neoplasm. False positive reports average 6 to 10%. Patient will receive a letter notifying them of these results.
== END ==
LOC: DI 00:26
PROVIDERS: PCP Nurse Practitioner Family; Visit Provider Nurse Practitioner Family
DX: Z12.31 Encounter for screening mammogram for malignant neoplasm of breast (principal)
CPT/HCPCS: 77063; 77067

== ENCOUNTER 2025-05-29 03:22 | Emergency (ER) | payer MEDICARE, SELFPAY ==
[2025-05-29 03:27] VITALS: BP 140/79; PULSE 89; RESP 20; TEMP 35.9; O2SAT 99
[2025-05-29] MEDS: Loratidine 10 MG TAB PO (04:03)
[2025-05-29] MEDS: methylPREDNISolone SUCC 125 MG VIAL IM (04:03)
[2025-05-29] MEDS: diphenhydrAMINE 25 MG CAP 50 MG PO (04:03)
--- NOTE | 2025-05-29 04:15 | RT.EKG_ITS ---
APPROVED REPORT Exam: Resting ECG Reason for Exam: Chest tightness Patient Location: E HR:69 bpm ECG Measurements Heart Rate 69 AXIS SD 178 P -45 QRSd 99 QRS -33 QT 434 T 80 QTc 467 Conclusion Sinus or ectopic atrial rhythm...P axis (-45,135) Atrial premature complex...SV complex w/ short R-R interval Left axis deviation...QRS axis (-30,-90) Physician: No STEMI
--- NOTE | 2025-05-29 04:23 | W.ED.GENAD ---
Discharge Plan Disposition Patient Disposition: Home Condition: Good Discharge Details Clinical Impression: Rash Primary Care Provider: Gail Donald ED Provider: Patricio Smith Home Meds and New Rx's Prescriptions: New loratadine 10 mg tablet 10 mg PO DAILY Qty: 10 0RF diphenhydramine HCl [Benadryl] 25 mg capsule 25 mg PO Q6H Qty: 100 0RF prednisone 50 mg tablet 50 mg PO DAILY Qty: 5 0RF No Action fluticasone furoate [Arnuity Ellipta] 100 mcg/actuation blister with device 1 inh inhalation DAILY Patient Comments: INHALE 1 PUFF BY MOUTH EVERY DAY Complex B-100 Tablet Extended Release 1 tab PO DAILY buspirone 10 mg tablet 10 mg PO BID PRN bupropion HCl [Wellbutrin SR] 200 mg tablet sustained-release 12 hr 200 mg PO BID baclofen 5 mg tablet 5 mg PO TID PRN magnesium oxide 400 mg magnesium tablet 400 mg PO BID PRN zonisamide 100 mg capsule 400 mg PO HS Qty: 360 3RF Rx Instructions: Cipl brand only! albuterol sulfate [Ventolin HFA] 90 mcg/actuation HFA aerosol inhaler 2 puff inhalation Q4H Qty: 8.5 12RF acetylcysteine 600 mg capsule 600 mg PO BID meloxicam 7.5 mg tablet 7.5 mg PO DAILY PRN Patient Comments: TAKE ONE TABLET BY MOUTH EVERY DAY NEEDED FOR PAIN Discharge Instructions Instructions: Skin Rash ED Additional Instructions: At this time you have a mild rash which is likely secondary to an allergic reaction. This may have been from the vaccine, however it is impossible to know for sure. You have received a steroid as an injection here. Please take the prednisone as prescribed. Please start this morning In the meantime please take 10 mg of loratadine every morning starting on . Please make sure to take 25 mg of Benadryl every night before bed. It can certainly make you sleepy. Ideally it would be good to take 25 mg of Benadryl every 6 hours for the next 3 to 4 days, however if you find that it makes you too sleepy during the day then taking just the 25 mg at night is reasonable if you are having an improvement still of your rash. Please monitor your symptoms closely. If you notice that the rash changes, becomes worse, or does not improve over the next 2 to 3 days please return immediately for reassessment and reevaluation. If you notice any worsening of your symptoms, or any new symptoms such as vomiting, diarrhea, fever, chills, shortness of breath, chest pain, numbness, weakness, or fainting , please return immediately to the emergency department for reevaluation. Please follow up with your primary care provider as soon as possible for reassessment and reevaluation. As always, it was a pleasure participating in your medical care today. Stand Alone Forms: Portal Information HPI General Date/Time Provider Initiated Documentation: 05/29/25 03:57. HPI Narrative: This is a 69-year-old female with a past medical history of abdominal aortic aneurysm, stroke, trigeminal neuralgia, suspected potential MS, with a history of allergies to sulfa antibiotics, who presents today for evaluation of rash. Patient received her RSV vaccine 2 days ago on Tuesday, she had done well with this, however yesterday she noticed a rash that developed on her wrist and chest, and then early in the morning today on Tuesday she noticed that it was itchiness on her ankles, and the rash had spread to her ankles legs buttock chest back abdomen and upper extremities. She admits to itchiness throughout. She denies any fever or chills. She admits to a very mild amount of chest tightness, but no exertional dyspnea or exertional chest pain. She denies any other complaints at this time. She denies ever having a rash like this before. She denies any new soaps, detergents, close, or foods. She states that she sticks to a very structured and regulated diet. Related Data Home Medications Medication Instructions Recorded Confirmed bupropion HCl 200 mg tablet,12 hr 200 mg PO BID 11/20/21 05/29/25 sustained-release (Wellbutrin SR) vitamin B complex (Complex B-100 1 tab PO DAILY 05/14/24 05/29/25 tablet,extended release) baclofen 5 mg tablet 5 mg PO TID PRN 05/22/24 05/29/25 magnesium oxide 400 mg PO BID PRN 05/22/24 05/29/25 buspirone 10 mg tablet 10 mg PO BID PRN 12/03/24 05/29/25 zonisamide 100 mg capsule 400 mg (4 x 100 mg) PO HS #360 caps 12/11/24 05/29/25 fluticasone furoate 100 1 inh inhalation DAILY 01/30/25 05/29/25 mcg/actuation blister powder for inhalation (Arnuity Ellipta) albuterol sulfate 90 mcg/actuation 2 puff inhalation Q4H #8.5 grams 02/11/25 05/29/25 aerosol inhaler (Ventolin HFA) acetylcysteine 600 mg capsule 600 mg PO BID 02/20/25 05/29/25 meloxicam 7.5 mg tablet 7.5 mg PO DAILY PRN 05/21/25 05/29/25 diphenhydramine HCl 25 mg capsule 25 mg PO Q6H #100 caps 05/29/25 (Benadryl) loratadine 10 mg tablet 10 mg PO DAILY #10 tabs 05/29/25 prednisone 50 mg tablet 50 mg PO DAILY #5 tabs 05/29/25 Previous Rx's Medication Instructions Recorded zonisamide 100 mg capsule 400 mg (4 x 100 mg) PO HS #360 caps 12/11/24 albuterol sulfate 90 mcg/actuation 2 puff inhalation Q4H #8.5 grams 02/11/25 aerosol inhaler (Ventolin HFA) diphenhydramine HCl 25 mg capsule 25 mg PO Q6H #100 caps 05/29/25 (Benadryl) loratadine 10 mg tablet 10 mg PO DAILY #10 tabs 05/29/25 prednisone 50 mg tablet 50 mg PO DAILY #5 tabs 05/29/25 Allergies Allergy/AdvReac Type Severity Reaction Status Date / Time oxycodone (From Percocet) Allergy Severe unknown Verified 05/23/25 10:57 ciprofloxacin (From Cipro) Allergy Intermediate achilles Verified 05/23/25 10:57 tendonitis alprazolam (From Xanax) AdvReac Mild Nausea Verified 05/23/25 10:57 prednisone AdvReac Unknown Unknown Verified 05/23/25 10:57 Sulfa (Sulfonamide AdvReac Rash Verified 05/23/25 10:57 Antibiotics) General Stated Complaint: Allergic MARIBELL: 3 Exam Narrative Exam Narrative: 1.Const: Well-nourished, Well-developed, appearing stated age 2.Eyes: PERRL, no conjunctival injection, and symmetrical lids. 3.ENT: Atraumatic external nose and ears. Moist MM. Neck: Symmetric, trachea midline, No thyromegaly. 4.CVS: +S1/S2, Peripheral pulses 2+ and equal in all extremities. Brisk capillary refill in all extremities. 5.RESP: Unlabored respiratory effort. Clear to auscultation bilaterally. No wheezes rales or rhonchi 6.GI: Soft, Nontender/Nondistended, No hepatosplenomegaly. No guarding or rebound. 7.MSK: Normocephalic/Atraumatic, Extremities w/o deformity or ttp No cyanosis or clubbing, Normal movement of all extremities 8.Skin: Warm, Dry. Patient demonstrates a diffuse macular raised rash over her chest back buttock abdomen legs and arms. Each lesion is about 2 to 3 mm wide, no convalescence. Lesions are blanching. Negative Nikolsky sign. No large vesicles or bulla. No palpable purpura. No oral lesions. No mucosal lesions. No evidence of severe cellulitis. No evidence of vaccine preventable rash. 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 Sensation grossly intact, no focal neurologic deficits. 10.Psych: (AAO) x3. Appropriate mood and affect Course Vital Signs Vital signs: Vital Signs Temperature 35.9 C L 05/29/25 03:27 Pulse 89 05/29/25 03:27 Respiratory Rate 20 05/29/25 03:27 Blood Pressure 140/79 05/29/25 03:27 Pulse Oximetry 99 05/29/25 03:27 Temperature 35.9 C L 05/29/25 03:27 Temperature Source Tympanic 05/29/25 03:27 Pulse 89 05/29/25 03:27 Respiratory Rate 20 05/29/25 03:27 Respiratory Effort Normal, Non-Labored 05/29/25 03:34 Respiratory Pattern Normal 05/29/25 03:34 Blood Pressure 140/79 05/29/25 03:27 Blood Pressure Position Sitting 05/29/25 03:27 Pulse Oximetry 99 05/29/25 03:27 Oxygen Delivery Method Room Air 05/29/25 03:27 Oxygen Flow Rate 0 05/29/25 03:27 Pain Level 0 05/29/25 03:27 Medical Decision Making This is a 69-year-old female with a past medical history of abdominal aortic aneurysm, stroke, trigeminal neuralgia, suspected potential MS, with a history of allergies to sulfa antibiotics, who presents today for evaluation of rash. Patient received her RSV vaccine 2 days ago on Tuesday, she had done well with this, however yesterday she noticed a rash that developed on her wrist and chest, and then early in the morning today on Tuesday she noticed that it was itchiness on her ankles, and the rash had spread to her ankles legs buttock chest back abdomen and upper extremities. She admits to itchiness throughout. She denies any fever or chills. She admits to a very mild amount of chest tightness, but no exertional dyspnea or exertional chest pain. She denies any other complaints at this time. She denies ever having a rash like this before. She denies any new soaps, detergents, close, or foods. She states that she sticks to a very structured and regulated diet. Patient demonstrates a diffuse macular raised rash over her chest back buttock abdomen legs and arms. Each lesion is about 2 to 3 mm wide, no convalescence. Lesions are blanching. Negative Nikolsky sign. No large vesicles or bulla. No palpable purpura. No oral lesions. No mucosal lesions. No evidence of severe cellulitis. No evidence of vaccine preventable rash. No current clinical evidence of staph scalded skin syndrome, erythema multiforme, erythema migrans, toxic epidermal necrolysis, Jenkins-Andre syndrome, Kawasaki-like rash, meningococcemia, pemphigus vulgaris, or necrotizing fasciitis. Symptomatology consistent with mild macular rash likely secondary to a reaction to the recently injected vaccine. No evidence of anaphylaxis whatsoever. No evidence of Jenkins-Andre syndrome. Patient was given loratadine and Benadryl as well as IM Solu-Medrol. She has tolerated this well. We have avoided prednisone secondary to her mother having had more of a manic reaction to this. Will recommend continued antihistamine therapy for the next 5 to 7 days. If symptoms continue after 72 hours without any improvement she may benefit from Decadron in addition to the antihistamine treatment. With no other evidence of life-threatening rash at this time it is reasonable for discharge with continued close follow-up with PCP. Additionally the patient's EKG is notably benign, no exertional chest pain, no falls or trauma , No evidence to suggest STEMI or ACS. No pleuritic chest pain to suggest PE. No trauma to suggest pneumothorax. No tearing sensation to suggest dissection. discussed red flags for which to return. I have extensively reviewed the treatment plan and discharge instructions with the patient. I have addressed all patient concerns at this time. The patient was made aware of what symptoms to monitor for that would warrant a return to the emergency department. Discussed the plan with the patient, they demonstrate verbal understanding and agreement with our assessment and plan at this time. The documentation in this chart was dictated using [employer] dictation software. Please excuse any dictation errors. We had a long discussion together about prednisone, and after discussion of risks and benefits, patient states that she would like to move forward and start the prednisone. Will send prescription for this. PFSH All Active Problems (Updated 05/29/25 @ 04:39 by Patricio Smith DO) Rash (Acute) Thickened endometrium (Acute) Postmenopausal bleeding (Acute) Moderate persistent asthma (Acute) Bronchomalacia, acquired (Acute) BARRON (dyspnea on exertion) (Acute) Dizziness (Acute) Left anterior fascicular block (LAFB) (Acute) Trigeminal neuralgia (Acute) Aphasia (Acute) Disoriented (Acute) Lesion of skin of face (Acute) Fatigue (Acute) Elevated d-dimer (Acute) Acute rhinosinusitis (Acute) Seborrheic keratosis (Acute) Diastolic dysfunction (Acute) Dyspnea (Acute) Left inguinal hernia (Acute) Actinic keratosis (Acute) Osteopenia (Acute) Left upper quadrant pain (Acute) Essential tremor (Acute) Memory loss (Acute) Pelvic floor dysfunction (Acute) Neck pain (Acute) Interstitial cystitis (Acute) Screening for colon cancer (Acute) Trigeminal neuralgia of left side of face (Acute) Genital warts (Acute) Medical History (Updated 05/29/25 @ 04:39 by Patricio Smith DO) Eating disorder Obstructive lung disease Breast lump Family history of diabetes mellitus Hx of urinary tract infection H/O renal impairment AAA (abdominal aortic aneurysm) Per [facility] 08/01/23 4.2 RH. Pt. reports this is a descending aortic aneurysm Neurologic abnormality Pt. stated she had what she was told something that mimicked a stroke, but wasn't one, lost some cognitive, but has regained most (75%) of the cognitive abilitiy, they put me in to the questionable MS category Anxiety Sciatica Scoliosis Depression Lactose intolerance Gluten intolerance Serrated adenoma of colon Surgical History S/P silicone breast implant History of colonoscopy (~06/2008) 2021 2009 Family History Mother Diabetes Hypertension Stroke H/O heart surgery Anxiety Hyperlipidemia Squamous cell carcinoma of skin, site unspecified Brother Aneurysm Father Accident swimming incident/drowning Maternal Grandfather Malignant neoplasm of lung Heart failure Paternal Grandmother Breast cancer 1 gene mutation Social History Smoking/Tobacco Use Status: Former Tobacco Use tobacco type: cigarettes Quit Date: 07/18/82 Pack-years: 4 Tobacco: How many years used: 7 Smoking risk assessment performed?: Yes Alcohol Intake: current Alcohol Intake frequency: holidays/special occasions only Alcohol type: wine Drug use: Occasionally Substance use type: marijuana Details: Pt states 2xwk, a couple of puffs. had alcohol earlier in the evening with dinner 05/29/25 Housing: house Number of Children: 4 current occupation: Artist What is your relationship status?: Panel score (0-1 are the most socially isolated patients): 1 Do you feel safe at home: Yes Do you feel safe in your relationship?: Yes Additional Social history: Smoked for 4 yrs in [place] quit at age 23.Does smoke mj intermittently. History History 4 Para 3 Hx # Term Pregnancies 3 Multiple births Hx # Pregnancies Ectopic pregnancies AB induced Hx Number of Living Children 3 AB spontaneous 1 Past Pregnancies Del. Date GA/Weeks # Preg Succ Route Wgt Sex Labor Lgth Anesthesia Location Prov Complic 08/07/83 No Yes vaginal 3401.943 g Male hyanis Mass 12/26/86 No Yes vaginal 3940.584 g Male hyanis mass 10/09/92 No Yes vaginal 3401.943 g Male hyanis mass
[2025-05-29 05:35] VITALS: BP 136/72; PULSE 82; RESP 16; O2SAT 98
== END 2025-05-29 05:35 | disposition home or self-care (01) ==
PROVIDERS: Emergency Provider Student in an Organized Health Care Education/Training Program; PCP Nurse Practitioner Family
DX: R21 Rash and other nonspecific skin eruption (principal)
CPT/HCPCS: 99283 ×2; 96372; 93005; 93010; J2919

== ENCOUNTER → 2025-05-30 14:08 | Outpatient (BNVA) | payer MEDICARE, SELFPAY | PROVIDERS: PCP Nurse Practitioner Family; Referring Provider Nurse Practitioner Family; Visit Provider Psychiatry & Neurology Neurology | DX: G50.0 Trigeminal neuralgia (principal); R41.3 Other amnesia; G25.0 Essential tremor | CPT/HCPCS: 99214 ==

== ENCOUNTER 2025-06-18 13:37 | Outpatient (REF) | payer MEDICARE, SELFPAY ==
[2025-06-18 15:41] LABS: Abs Immature Grans 0.02 10^3/uL (0.0-0.06); HCT 42.2 % (36.0-46.0); HGB 13.7 g/dL (11.2-15.7); Immature Grans % 0.3 %; MCH 29.0 pg (27.0-33.0); MCHC 32.5 % (32.0-36.0); MCV 89 fL (80-95); MPV 11.7 fL (8.0-11.0); Platelet Count 311 10^3/uL (130-400); RBC 4.73 10^6/uL (3.93-5.22); RDW 13.2 % (11.7-14.6); RDW-SD 43.5 fL; WBC 6.93 10^3/uL (4.4-10.8)
[2025-06-18 16:12] LABS: Glucose Negative (Negative)
[2025-06-18 16:16] LABS: ALT 34 U/L (10-49); AST 33 U/L (<34); Albumin 4.4 g/dL (3.2-5.0); Alkaline Phosphatase 102 U/L (46-116); Anion Gap 11.5 mmol/L (3-11); BUN 28 mg/dL (9-23); Bilirubin, Total 0.60 mg/dL (0.2-1.2); CO2 19.5 mmol/L (20.0-31.0); Calcium 9.8 mg/dL (8.3-10.6); Chloride 111 mmol/L (98-107); Glucose 95 mg/dL (74-106); Potassium 4.2 mmol/L (3.5-5.1); Sodium 142 mmol/L (136-145); Total Protein 6.9 g/dL (5.7-8.2)
[2025-06-18 16:19] LABS: RBC 0-2 HPF (0-2)
== END 2025-06-18 13:38 | disposition home or self-care (01) ==
LOC: NCHCN 13:37
PROVIDERS: PCP Nurse Practitioner Family; Visit Provider Nurse Practitioner Family
DX: R10.31 Right lower quadrant pain (principal)
CPT/HCPCS: 80053; 81003; 81015; 85025

== ENCOUNTER → 2025-06-25 10:55 | Outpatient (CLI) | payer MEDICARE, SELFPAY ==
--- NOTE | 2025-06-25 | DI.MRI_ITS ---
Exam(s) MR LUMBAR SPINE WO EXAM: MR LUMBAR SPINE WO CLINICAL HISTORY: RT GROIN, RLQ PAIN, R10.31. TECHNIQUE: Multiplanar multisequence MRI of the Lumbar spine was performed. COMPARISON: CR XR SCOLIOSIS T-L SPINE from 02/07/[address] THORAX CTA from 03/15/2023 CR XR DEXA BONE DENSITY W/WO NAVID from 04/19/2024 FINDINGS: There is severe bidirectional thoracolumbar scoliosis. The severe roto scoliosis at the level lumbar spine is convex left. Conus medullaris is at lower L1 level. There is no evidence of conus mass nor subjacent clumping of intrathecal nerve roots to suggest arachnoiditis. The distal thecal sac appears unremarkable.There is no evidence of Tarlov intrasacral cysts nor other significant findings within the sacral canal Bones:There are no fractures nor ominous osseous lesions in the lumbar vertebral bodies and visualized sacrum. With respect to the disc space individual levels... T12-L1: There is asymmetric narrowing of the right-side of the disc space related to the scoliosis. There is no disc herniation or central canal stenosis at this level. Three there is no foraminal stenosis on the left side. There there is some foraminal stenosis on the right side L1-2: There is disc space narrowing which is also more prominent on the right side related to the scoliosis. There also lateral right osteophytes. Posteriorly there is no disc herniation or central canal stenosis. No obvious foraminal stenosis on the left side. There is foraminal stenosis on the right side. L2-3: This level exhibits advanced chronic disc space narrowing also more prominent on the right side where there are also lateral right-sided osteophytes. There is a E focal lateral right disc protrusion at this level at the level just medial to the exiting right neural foramen. This disc protrusion extends posteriorly 3 mm and is 1.4 cm wide. There is significant right-sided foraminal stenosis. Mild left-sided foraminal stenosis. L3-4: There is advanced disc space chronic narrowing at this level also evident. Also right-sided osteophytes. There is no disc herniation at this level but there is an element of central canal stenosis related to degenerative change in the right facet joint which is impinging upon the posterior right side of the thecal sac. There is significant left-sided foraminal stenosis at this level. Mild right-sided foraminal stenosis. L4-5: This level exhibits relatively preserved disc height with mild narrowing of the disc height on the left side. There is mild annular bulging without a distinct disc herniation. There is mild-moderate central spinal canal stenosis related to mild annular bulging and degenerative changes in the facet joints, left more so than right. Also short AP dimensions of the pedicles. No foraminal stenosis on the right side. Severe foraminal stenosis noted on the left side. L5-S1: This level exhibits preserved disc height and signal. No evidence of disc herniation or central canal stenosis. There are advanced degenerative changes in the left facet joint at this level. There is moderate foraminal stenosis on the left side. There is milder degenerative change in the right facet joint and no foraminal stenosis on the right side. Soft tissues: paraspinal soft tissues appear unremarkable. IMPRESSION: 1. Multilevel significant findings as described individually above and related to severe bidirectional thoracolumbar scoliosis which is a severe rotoscoliosis convex left at the level the lumbar spine. This results in multilevel asymmetric foraminal stenosis as described individually above. 2. The only focal disc herniation evident is on the right side at the L2-3 level. 3. There are no fractures nor significant AP directional listhesis and there are no osseous lesions. DATA REPOSITORY:
== END ==
LOC: DI 10:55
PROVIDERS: PCP Nurse Practitioner Family; Visit Provider Nurse Practitioner Family
DX: M41.25 Other idiopathic scoliosis, thoracolumbar region (principal); M41.86 Other forms of scoliosis, lumbar region
CPT/HCPCS: 72148

== ENCOUNTER → 2025-06-28 01:27 | Outpatient (CLI) | payer MEDICARE, SELFPAY ==
--- NOTE | 2025-06-28 | DI.CT_ITS ---
Exam(s) CT ABDOMEN PELVIS W EXAM: CT ABDOMEN PELVIS W CLINICAL HISTORY: RT GROIN PAIN,R10.31,RLQ PAIN. TECHNIQUE: Imaging Protocol: Axial computed tomography images with coronal and sagittal reformatted images were created and reviewed CONTRAST MATERIAL: Intravenous: Omnipaque 350 Contrast volume:75 ml Oral: yes COMPARISON: CT CT THORAX CTA from 03/15/2023 FINDINGS: ABDOMEN and PELVIS: Lung Bases: No acute findings. Bilateral breast implants. Liver: Normal density. No suspicious mass. Gallbladder and biliary tract: No radiodense calculus. No wall thickening or pericholecystic fluid. No biliary dilation. Pancreas: Normal density. No abnormal calcifications or inflammatory process. No evidence of mass. Spleen: Normal. Kidneys: Normal size, contour and axis. No radiodense stones. No obstructive uropathy. No suspicious masses seen. Adrenal glands: No masses seen. Vasculature: Abdominal aorta non-dilated. Soft tissues: Unremarkable. Bladder: No gross wall thickening. No calculi.No focal mass. Bowel: No obstruction. No bowel wall thickening. Large quantity of stool throughout the colon, consistent with constipation. Peritoneal cavity: No ascites. No focal collection. No mesenteric inflammatory response. No free air. Bones: Severe scoliosis and degenerative changes. Reproductive organs: Unremarkable. Lymph nodes: No pathologically enlarged lymph nodes. IMPRESSION:: No acute abnormality in the abdomen or pelvis. Large amount of stool throughout the colon consistent with constipation. RADIATION DOSE DELIVERED: 417.29mGy.cm Total DLP DATA REPOSITORY: All CT scans at this facility are submitted to the National Radiology Data Registry (NRDR) Dose Index Registry (DIR) with the [employer] (A[employer]). RADIATION OPTIMIZATION: All CT scans at this facility use at least one of these dose optimization techniques: automated exposure control; mA and/or kV adjustment per patient size (includes targeted exams where dose is matched to clinical indication); or iterative reconstruction.
[2025-06-28] MEDS: Barium Sulfate 2% W/V-Creamy Vanilla Smoothie 450 ML BTL PO (11:56)
[2025-06-28] MEDS: Barium Sulfate 2% W/V-Berry Smoothie 450 ML BTL PO (11:56)
[2025-06-28] MEDS: Normal Saline Flush 10 ML SYR IVP (14:11)
[2025-06-28] MEDS: Omnipaque 350 MG/ML 100 ML BTL IJ (14:11)
[2025-06-28] MEDS: Normal Saline - Diluent 50 ML VIAL IJ (14:11)
== END ==
LOC: DI 01:27
PROVIDERS: PCP Nurse Practitioner Family; Visit Provider Nurse Practitioner Family
DX: R10.31 Right lower quadrant pain (principal)
CPT/HCPCS: 74177; J3490